=== PATIENT | male | born 1945 | race Caucasian/White ===

== ENCOUNTER 2016-06-29 13:48 | Observation (INO) | payer MEDICARE, BC ==
[~2016-06-29] VITALS: Ht 190.5 cm; Wt 80.5 kg
[~2016-06-29 13:48] MED LIST: ADALAT CC90 MG PO; AFEDITAB CR60 MG PO; ALTOPREV20 MG PO; AMITRIPTYLIN25 MG PO; ASPIRIN LOW DOS81 M2 PO; ATENOLOL25 MG PO; BACTRIM DS1 TAB PO; CARDURA4 MG PO; CATAPRES-T0.2 MG/21 TD; CELEBREX100 M1 PO; CELEXA20 MG PO; CEPHALEXIN500 MG PO; CIPROFLOXACIN500 M1 PO; CIPROFLOXACN500 MG PO; CYCLOBENZAPR10 MG PO; DIAZEPAM5 MG PO; DILAUDID; DOXAZOSIN MESYLA2 MG PO; DOXAZOSIN1 MG PO; DOXYCYCL HYC100 MG PO; DUONEB IN; DURAGESIC75 MCG/H1 TD; ECOTRIN325 MG OR; ELAVIL25 M1 PO; ERYTHROMYCIN BAS1 GM OD; FAMVIR500 MG PO; FENTANYL50 MCG/HR EX; FENTANYL75 MCG/HR TD; FINASTERIDE5 MG PO; FISH OIL1000 MG; FISH OIL1000 MG PO; FLEXERIL PO; FLOMAX0.4 M1 PO; FLUCONAZOLE100 MG PO; GABAPENTIN300 MG PO; HYDROCHLORO25 MG/TAB PO; IPRATROPIU0.5 MG/3 M IN; ISOSORB MONO30 MG PO; ISOSORBIDE DINI30 MG PO; ISOSORBIDE MONO30 MG PO; LASIX20 MG PO; LEVAQUIN750 MG PO; LEVOFLOXACIN250 M1 PO; LEXAPRO10 MG PO; LEXAPRO20 MG PO; LORTAB 1010 MG PO; LORTAB 5/3255 MG PO; LYRICA50 MG PO; MAXZIDE PO; MAXZIDE-25MG1 COMBO PO; MEDDOSEPAK PO; MELOXICAM7.5 MG PO; METAMUCIL28.3 % PO; METHADONE10 M1 PO; METO50TA52 PO; MIRALAX3350 N1 PO; MIRTAZAPINE15 MG PO; NAPROSYN250 MG PO; NAPROSYN500 MG PO; NAPROXEN375 MG PO; NAPROXEN500 MG PO; NEURONTIN100 MG; NEURONTIN100 MG PO; NEURONTIN300 MG PO; NIFEDIPINE ER90 M1 PO; NIFEDIPINE90 MG PO; NITROSTAT0.4 MG PO; NORCO1 TA1 PO; OMEPRAZOLE20 MG PO; OXYCODONE HCL15 MG PO; OXYCODONE15 MG PO; PERCOCET 10/31 COMBO PO; PERCOCET 5/325M1 TAB PO; PERCOCET1 TA4 PO; PRILOSEC20 MG/CAP PO; PROCARDIA XL60 MG PO; PROSCAR5 MG PO; REMERON15 MG PO; RESTORIL15 MG PO; STERAPRED DS10 MG PO; TAMSULOSIN0.4 MG PO; TENORMIN PO; TENORMIN25 MG PO; TYLENOL # 31 TA1 PO; TYLENOL325 MG PO; ULTRAM50 M1 PO; ULTRAM50 MG PO; VALIUM5 MG PO; VENTOLIN HFA IN; [UNRECOGNIZED DRUG - OTHER] PO; catapres PO
[2016-06-29 14:20] VITALS: BP 109/65
[2016-06-29 15:36] LABS: HEMATOCRIT 36.3 % (39.0-50.0); HEMOGLOBIN 10.8 g/dl (14.0-18.0); IMMATURE GRANULOCYTES 0.4 % (0.0-1.0); MEAN CELL VOLUME 80.7 fL CALC (80.0-100.0); MEAN CORPUSCULAR HGB CONC 29.8 g/L CALC (32.0-36.0); NEUT# 5.14 thou/uL (1.82-7.42); RED BLOOD COUNT 4.5 mill/uL (4.70-6.10); RED CELL DISTRI WIDTH 17.3 % (11.5-15.5)
[2016-06-29 16:00] VITALS: BP 120/70
[2016-06-29 16:20] LABS: ALBUMIN 3.8 g/dL (3.2-5.0); BILIRUBIN, TOTAL 0.4 mg/dL (0.0-1.4); CALCIUM 9.4 mg/dL (8.4-10.2); CREATININE 2.5 mg/dL (0.7-1.3); POTASSIUM 3.5 mmol/l (3.5-5.1); TOTAL PROTEIN 7.5 g/dL (6.3-8.2)
[2016-06-29 19:13] VITALS: BP 135/72
[2016-06-29 19:59] LABS: BARBITURATES NEGATIVE (NEGATIVE); COCAINE NEGATIVE (NEGATIVE); METHADONE NEGATIVE (NEGATIVE); OXCYCODONE POSITIVE (NEGATIVE); TETRAHYDROCANNABIONOL NEGATIVE (NEGATIVE); TRICYLIC ANTIDEPRESSANTS POSITIVE (NEGATIVE)
[2016-06-29 21:34] LABS: URINE BILIRUBIN - DIPSTICK NEGATIVE (NEGATIVE); URINE BLOOD DIPSTICK NEGATIVE (NEGATIVE); URINE CLARITY CLEAR; URINE COLOR YELLOW; URINE GLUCOSE - DIPSTICK NEGATIVE (NEGATIVE); URINE KETONE NEGATIVE (NEGATIVE); URINE LEUK ESTERASE NEGATIVE (Negative); URINE NITRITE - DIPSTICK NEGATIVE (Negative); URINE PH 5.5 (4.5-8.0); URINE PROTEIN - DIPSTICK NEGATIVE (NEG-TRACE); URINE UROBILINOGEN - DIPSTICK 0.2 E.U./dL (0.2)
[2016-06-30 00:22] VITALS: BP 120/70
[2016-06-30 03:30] VITALS: BP 127/79
[2016-06-30 06:59] LABS: HEMATOCRIT 36.6 % (39.0-50.0); HEMOGLOBIN 10.8 g/dl (14.0-18.0); IMMATURE GRANULOCYTES 0.1 % (0.0-1.0); MEAN CELL VOLUME 81.3 fL CALC (80.0-100.0); MEAN CORPUSCULAR HGB CONC 29.5 g/L CALC (32.0-36.0); NEUT# 5.21 thou/uL (1.82-7.42); RED BLOOD COUNT 4.5 mill/uL (4.70-6.10); RED CELL DISTRI WIDTH 17.2 % (11.5-15.5)
[2016-06-30 07:35] LABS: ALBUMIN 3.5 g/dL (3.2-5.0); BILIRUBIN, TOTAL 0.4 mg/dL (0.0-1.4); CREATININE 2.1 mg/dL (0.7-1.3); POTASSIUM 3.2 mmol/l (3.5-5.1); TOTAL PROTEIN 7.1 g/dL (6.3-8.2)
[2016-06-30 08:40] VITALS: BP 118/68
[2016-06-30 15:26] VITALS: BP 138/71
[2016-06-30 19:09] VITALS: BP 129/74
[2016-06-30 23:50] VITALS: BP 132/78
[2016-07-01 03:30] VITALS: BP 142/62
[2016-07-01 05:39] LABS: HEMATOCRIT 35.3 % (39.0-50.0); HEMOGLOBIN 10.4 g/dl (14.0-18.0); IMMATURE GRANULOCYTES 0.1 % (0.0-1.0); MEAN CELL VOLUME 81.5 fL CALC (80.0-100.0); MEAN CORPUSCULAR HGB CONC 29.5 g/L CALC (32.0-36.0); NEUT# 3.93 thou/uL (1.82-7.42); RED BLOOD COUNT 4.33 mill/uL (4.70-6.10)
[2016-07-01 06:13] LABS: ALBUMIN 3.6 g/dL (3.2-5.0); BILIRUBIN, TOTAL 0.4 mg/dL (0.0-1.4); CALCIUM 9.3 mg/dL (8.4-10.2); CREATININE 1.6 mg/dL (0.7-1.3); POTASSIUM 3.6 mmol/l (3.5-5.1)
[2016-07-01 08:57] VITALS: BP 138/50
[2016-07-01] MEDS ORDERED: GABAPENTIN300 MG PO (08:59)
[2016-07-01] MEDS ORDERED: FLOMAX0.4 M1 PO (08:59)
[2016-07-01] MEDS ORDERED: VENTOLIN HFA IN (08:59)
[2016-07-01] MEDS ORDERED: LEXAPRO20 MG PO (09:00)
[2016-07-01] MEDS ORDERED: LORAZEPAM0.5 MG PO (09:01)
[2016-07-01] MEDS ORDERED: PRILOSEC20 MG/CAP PO (09:02)
[2016-07-01] MEDS ORDERED: PROSCAR5 MG PO (09:02)
[2016-07-01] MEDS ORDERED: LASIX20 MG PO (09:02)
[2016-07-01] MEDS ORDERED: MIRALAX3350 N1 PO (09:02)
[2016-07-01] MEDS ORDERED: NAPROSYN500 MG PO (09:04)
[2016-07-01] MEDS ORDERED: ISOSORBIDE MONO30 MG PO (09:04)
[2016-07-01] MEDS ORDERED: ATENOLOL25 MG PO (09:04)
== END 2016-07-01 10:12 | disposition home or self-care (01) ==
LOC: ENPENDDIS → MS2 13:48
PROVIDERS: ADMIT Internal Medicine Geriatric Medicine; ATTEND Internal Medicine Geriatric Medicine
DX: E86.0 Dehydration (principal); N17.9 Acute kidney failure, unspecified; R09.02 Hypoxemia; R42 Dizziness and giddiness; R53.1 Weakness; I13.0 Hypertensive heart and chronic kidney disease with heart failure and stage 1 through stage 4 chronic kidney disease, or unspecified chronic kidney disease; N18.9 Chronic kidney disease, unspecified; I50.9 Heart failure, unspecified; I25.10 Atherosclerotic heart disease of native coronary artery without angina pectoris; M19.90 Unspecified osteoarthritis, unspecified site; J44.9 Chronic obstructive pulmonary disease, unspecified; R26.9 Unspecified abnormalities of gait and mobility; D64.9 Anemia, unspecified; F41.8 Other specified anxiety disorders; G89.29 Other chronic pain; F55.8 Abuse of other non-psychoactive substances; Z91.81 History of falling

== ENCOUNTER 2016-07-24 14:42 | Emergency (ER) | payer MEDICARE, BC ==
[~2016-07-24] VITALS: Ht 190.5 cm; Wt 97.3 kg
[~2016-07-24 14:42] MED LIST changes: +LORAZEPAM0.5 MG PO
[2016-07-24] MEDS ORDERED: TYLENOL #4 PO (18:08)
[2016-07-24 18:17] VITALS: BP 199/87
== END 2016-07-24 18:30 | disposition home or self-care (01) ==
LOC: ED 14:42
DX: M25.552 Pain in left hip (principal); M25.551 Pain in right hip; W01.0XXA Fall on same level from slipping, tripping and stumbling without subsequent striking against object, initial encounter; Y92.009 Unspecified place in unspecified non-institutional (private) residence as the place of occurrence of the external cause

== ENCOUNTER 2016-12-01 13:35 | Emergency (ER) | payer MEDICARE, BC ==
[~2016-12-01] VITALS: Ht 190.5 cm; Wt 98.0 kg
[~2016-12-01 13:35] MED LIST changes: +TYLENOL #4 PO
[2016-12-01] MEDS ORDERED: TORADOL PO (14:43)
[2016-12-01] MEDS ORDERED: FLEXERIL PO (14:43)
[2016-12-01] MEDS ORDERED: MOTRIN800 MG PO (14:51)
[2016-12-01 14:57] VITALS: BP 180/92
== END 2016-12-01 15:21 | disposition home or self-care (01) ==
LOC: ED 13:35
DX: G89.29 Other chronic pain (principal); M54.5 Low back pain; K21.9 Gastro-esophageal reflux disease without esophagitis; I11.0 Hypertensive heart disease with heart failure; I50.9 Heart failure, unspecified; F32.9 Major depressive disorder, single episode, unspecified; F41.9 Anxiety disorder, unspecified; F17.210 Nicotine dependence, cigarettes, uncomplicated

== ENCOUNTER 2018-02-07 10:01 | Emergency (ER) | payer MEDICARE, BC ==
[~2018-02-07] VITALS: Ht 190.5 cm; Wt 103.2 kg
[~2018-02-07 10:01] MED LIST changes: +MOTRIN800 MG PO; +TORADOL PO
[2018-02-07 11:14] LABS: HEMATOCRIT 42.6 % (39.0-50.0); HEMOGLOBIN 13.7 g/dl (14.0-18.0); IMMATURE GRANULOCYTES 0.2 % (0.0-5.0); MEAN CELL VOLUME 92.4 fL CALC (80.0-100.0); MEAN CORPUSCULAR HGB 29.7 pG CALC (26.0-32.0); MEAN CORPUSCULAR HGB CONC 32.2 g/L CALC (32.0-36.0); NEUT# 5.98 thou/uL (1.82-7.42); RED BLOOD COUNT 4.61 mill/uL (4.70-6.10); RED CELL DISTRI WIDTH 14.1 % (11.5-15.5)
[2018-02-07 11:18] LABS: ALBUMIN 3.8 g/dL (3.2-5.0); ALKALINE PHOSPHATASE 110 u/l (38-126); ANION GAP 11 (6-22 (CALC)); BILIRUBIN, TOTAL 0.5 mg/dL (0.0-1.4); BUN 19 mg/dL (8-23); BUN/CREATININE RATIO 19 (12-20 (CALC)); CARBON DIOXIDE 29 mmol/l (22-30); CHLORIDE 105 mmol/l (95-108); GFR > 60 ML/MIN (>=60 (CALC)); GFR FOR AFR.AMER. > 60 ML/MIN (>=60 (CALC)); POTASSIUM 4.8 mmol/l (3.5-5.1); SGOT/AST 19 u/l (19-48); SODIUM 140 mmol/l (137-146); TOTAL PROTEIN 7.3 g/dL (6.3-8.2)
[2018-02-07 11:59] VITALS: BP 204/116
[2018-02-07] MEDS ORDERED: PROVENTIL HFA IN (13:04)
[2018-02-07] MEDS ORDERED: ZITHROMAX250 MG PO (13:04)
[2018-02-07] MEDS ORDERED: LASIX20 MG PO (13:04)
[2018-02-07] MEDS ORDERED: MEDDOSEPAK PO (13:04)
[2018-02-07] MEDS ORDERED: ALBUTEROL SUL0.083 % IN (13:26)
== END 2018-02-07 13:53 | disposition home or self-care (01) ==
LOC: ED 10:01
PROVIDERS: Emergency Medicine
DX: J44.1 Chronic obstructive pulmonary disease with (acute) exacerbation (principal); I50.9 Heart failure, unspecified; I10 Essential (primary) hypertension; F17.200 Nicotine dependence, unspecified, uncomplicated; R06.02 Shortness of breath; R05 Cough; Z91.19 Patient's noncompliance with other medical treatment and regimen
CPT/HCPCS: Q9967

== ENCOUNTER 2018-03-29 00:07 | Emergency (ER) | payer MEDICARE, BC ==
[~2018-03-29] VITALS: Ht 188 cm; Wt 103.2 kg
[~2018-03-29 00:07] MED LIST changes: +ALBUTEROL SUL0.083 % IN; +PROVENTIL HFA IN; +ZITHROMAX250 MG PO
[2018-03-29] MEDS ORDERED: ELIQUIS5 MG PO (00:55)
[2018-03-29 00:59] LABS: HEMATOCRIT 40.9 % (39.0-50.0); HEMOGLOBIN 13.1 g/dl (14.0-18.0); IMMATURE GRANULOCYTES 0.2 % (0.0-5.0); MEAN CELL VOLUME 90.3 fL CALC (80.0-100.0); MEAN CORPUSCULAR HGB 28.9 pG CALC (26.0-32.0); NEUT# 6.68 thou/uL (1.82-7.42); RED BLOOD COUNT 4.53 mill/uL (4.70-6.10); RED CELL DISTRI WIDTH 14.1 % (11.5-15.5)
[2018-03-29 01:00] LABS: URINE BILIRUBIN - DIPSTICK NEGATIVE (NEGATIVE); URINE BLOOD DIPSTICK NEGATIVE (NEGATIVE); URINE COLOR YELLOW; URINE GLUCOSE - DIPSTICK NEGATIVE (NEGATIVE); URINE KETONE NEGATIVE (NEGATIVE); URINE LEUK ESTERASE NEGATIVE (NEGATIVE); URINE NITRITE - DIPSTICK NEGATIVE (Negative); URINE PH 7.5 (4.5-8.0); URINE PROTEIN - DIPSTICK NEGATIVE (NEG-TRACE); URINE UROBILINOGEN - DIPSTICK 0.2 E.U./dL (0.2)
[2018-03-29 01:07] LABS: ALBUMIN 3.7 g/dL (3.2-5.0); ALKALINE PHOSPHATASE 96 u/l (38-126); ANION GAP 11 (6-22 (CALC)); BILIRUBIN, TOTAL 0.4 mg/dL (0.0-1.4); BUN 20 mg/dL (8-23); BUN/CREATININE RATIO 18 (12-20 (CALC)); CARBON DIOXIDE 28 mmol/l (22-30); CHLORIDE 106 mmol/l (95-108); CREATININE 1.2 mg/dL (0.7-1.3); GFR 59 ML/MIN (>=60 (CALC)); GFR FOR AFR.AMER. > 60 ML/MIN (>=60 (CALC)); SGOT/AST 20 u/l (19-48); SODIUM 142 mmol/l (137-146); TOTAL PROTEIN 7.1 g/dL (6.3-8.2)
[2018-03-29 01:14] LABS: ACT PARTIAL THROMBO TIME 28.5 SECONDS (20.0-32.5); D-DIMER 0.97 mg/L (0.19-0.60); PROTHROMBIN TIME 10.2 SECONDS (9.0-12.5)
[2018-03-29 01:19] LABS: MYOGLOBIN 88 ng/mL (0 - 121)
[2018-03-29 01:35] VITALS: BP 168/81
== END 2018-03-29 01:35 | disposition home or self-care (01) ==
LOC: ED 00:07
PROVIDERS: Family Medicine
DX: R07.89 Other chest pain (principal); I10 Essential (primary) hypertension; J44.9 Chronic obstructive pulmonary disease, unspecified; F17.210 Nicotine dependence, cigarettes, uncomplicated

== ENCOUNTER 2018-08-26 05:15 | Observation (INO) | payer MEDICARE, BC ==
[~2018-08-26] VITALS: Ht 188 cm; Wt 101.1 kg
[~2018-08-26 05:15] MED LIST changes: +ELIQUIS5 MG PO
[2018-08-26] MEDS ORDERED: OMEPRAZOLE10 MG PO (05:29)
[2018-08-26] MEDS ORDERED: NAPROSYN500 MG PO (05:30)
[2018-08-26] MEDS ORDERED: OXYCOD-APAP1 TAB PO (05:31)
[2018-08-26] MEDS ORDERED: HYDROCHLOROT25 MG PO (05:31)
[2018-08-26] MEDS ORDERED: LEXAPRO10 MG PO (05:32)
[2018-08-26] MEDS ORDERED: KLOR-CON 1010 MEQ PO (05:35)
[2018-08-26] MEDS ORDERED: XALATAN 0.005%2.5 ML (05:36)
[2018-08-26] MEDS ORDERED: ATORVASTATIN CA40 MG PO (05:37)
[2018-08-26] MEDS ORDERED: ASPIRINCHW 81MG PO (05:38)
[2018-08-26] MEDS ORDERED: ALDACTONE25 MG PO (05:38)
[2018-08-26] MEDS ORDERED: METOLAZONE2.5 MG PO (05:39)
[2018-08-26] MEDS ORDERED: ISOSORB MONO30 MG PO (05:39)
[2018-08-26] MEDS ORDERED: MICRO-K10 MEQ PO (05:40)
[2018-08-26] MEDS ORDERED: METOPROLOL SUCC25 MG PO (05:40)
[2018-08-26] MEDS ORDERED: GABAPENTIN300 M2 PO (05:41)
[2018-08-26] MEDS ORDERED: ELAVIL25 M1 PO (05:42)
[2018-08-26] MEDS ORDERED: LOSARTAN POT50 MG PO (05:42)
[2018-08-26 05:43] LABS: HEMATOCRIT 37.7 % (39.0-50.0); HEMOGLOBIN 12.1 g/dl (14.0-18.0); IMMATURE GRANULOCYTES 0.6 % (0.0-5.0); MEAN CORPUSCULAR HGB 28.9 pG CALC (26.0-32.0); MEAN CORPUSCULAR HGB CONC 32.1 g/L CALC (32.0-36.0); NEUT# 9.27 thou/uL (1.82-7.42); RED BLOOD COUNT 4.19 mill/uL (4.70-6.10); RED CELL DISTRI WIDTH 14.6 % (11.5-15.5)
[2018-08-26] MEDS ORDERED: FINASTERIDE5 MG PO (05:43)
[2018-08-26] MEDS ORDERED: CATAPRES-T0.2 MG/21 TD (05:43)
[2018-08-26 05:56] LABS: ALKALINE PHOSPHATASE 103 u/l (38-126); ANION GAP 16 (6-22 (CALC)); BILIRUBIN, TOTAL 0.8 mg/dL (0.0-1.4); BUN 18 mg/dL (8-23); BUN/CREATININE RATIO 15 (12-20 (CALC)); CARBON DIOXIDE 27 mmol/l (22-30); CHLORIDE 100 mmol/l (95-108); CREATININE 1.2 mg/dL (0.7-1.3); GFR 59 ML/MIN (>=60 (CALC)); GFR FOR AFR.AMER. > 60 ML/MIN (>=60 (CALC)); POTASSIUM 4.3 mmol/l (3.5-5.1); SGOT/AST 23 u/l (19-48); SODIUM 139 mmol/l (137-146); TOTAL PROTEIN 7.4 g/dL (6.3-8.2)
[2018-08-26 06:08] LABS: MYOGLOBIN 76 ng/mL (0 - 121)
[2018-08-26] MEDS ORDERED: LASIX 40 MG TAB40 MG PO (06:14)
[2018-08-26 07:03] LABS: URINE BILIRUBIN - DIPSTICK NEGATIVE (NEGATIVE); URINE BLOOD DIPSTICK NEGATIVE (NEGATIVE); URINE COLOR YELLOW; URINE GLUCOSE - DIPSTICK NEGATIVE (NEGATIVE); URINE KETONE NEGATIVE (NEGATIVE); URINE LEUK ESTERASE NEGATIVE (NEGATIVE); URINE NITRITE - DIPSTICK NEGATIVE (Negative); URINE PH 6.5 (4.5-8.0); URINE PROTEIN - DIPSTICK NEGATIVE (NEG-TRACE); URINE SPECIFIC GRAVITY <=1.005; URINE UROBILINOGEN - DIPSTICK 0.2 E.U./dL (0.2)
[2018-08-26 08:45] VITALS: BP 161/114
[2018-08-26 11:06] VITALS: BP 184/107
[2018-08-26 15:54] VITALS: BP 101/69
[2018-08-26 19:50] VITALS: BP 104/71
[2018-08-27 00:08] VITALS: BP 147/73
[2018-08-27 05:09] VITALS: BP 105/56
[2018-08-27 05:32] LABS: HEMATOCRIT 38.5 % (39.0-50.0); HEMOGLOBIN 12.1 g/dl (14.0-18.0); IMMATURE GRANULOCYTES 0.7 % (0.0-5.0); MEAN CELL VOLUME 91.7 fL CALC (80.0-100.0); MEAN CORPUSCULAR HGB 28.8 pG CALC (26.0-32.0); MEAN CORPUSCULAR HGB CONC 31.4 g/L CALC (32.0-36.0); NEUT# 12.03 thou/uL (1.82-7.42); RED BLOOD COUNT 4.2 mill/uL (4.70-6.10); RED CELL DISTRI WIDTH 14.8 % (11.5-15.5)
[2018-08-27 05:53] LABS: ALBUMIN 3.9 g/dL (3.2-5.0); ALKALINE PHOSPHATASE 87 u/l (38-126); BUN 33 mg/dL (8-23); BUN/CREATININE RATIO 25 (12-20 (CALC)); CARBON DIOXIDE 29 mmol/l (22-30); CHLORIDE 97 mmol/l (95-108); CREATININE 1.3 mg/dL (0.7-1.3); GFR 54 ML/MIN (>=60 (CALC)); GFR FOR AFR.AMER. > 60 ML/MIN (>=60 (CALC)); SGOT/AST 16 u/l (19-48); SODIUM 139 mmol/l (137-146)
[2018-08-27 06:00] LABS: ANION GAP 18 (6-22 (CALC)); BILIRUBIN, TOTAL 0.4 mg/dL (0.0-1.4); POTASSIUM 5.2 mmol/l (3.5-5.1)
[2018-08-27 08:50] VITALS: BP 126/70
[2018-08-27 11:15] VITALS: BP 141/80
[2018-08-27 15:45] VITALS: BP 113/61
[2018-08-27 19:30] VITALS: BP 121/78
[2018-08-28] VITALS: BP 127/70
[2018-08-28 04:04] VITALS: BP 135/75
[2018-08-28 05:38] LABS: ALBUMIN 3.5 g/dL (3.2-5.0); ALKALINE PHOSPHATASE 86 u/l (38-126); ANION GAP 14 (6-22 (CALC)); BUN 36 mg/dL (8-23); BUN/CREATININE RATIO 32 (12-20 (CALC)); CARBON DIOXIDE 30 mmol/l (22-30); CHLORIDE 101 mmol/l (95-108); CREATININE 1.1 mg/dL (0.7-1.3); GFR > 60 ML/MIN (>=60 (CALC)); GFR FOR AFR.AMER. > 60 ML/MIN (>=60 (CALC)); POTASSIUM 4.5 mmol/l (3.5-5.1); SGOT/AST 13 u/l (19-48); SODIUM 139 mmol/l (137-146); TOTAL PROTEIN 6.3 g/dL (6.3-8.2)
[2018-08-28 05:48] LABS: BILIRUBIN, TOTAL 0.2 mg/dL (0.0-1.4)
[2018-08-28 08:37] VITALS: BP 149/79
[2018-08-28 08:41] VITALS: BP 149/79
== END 2018-08-28 10:15 | disposition home or self-care (01) ==
LOC: ED 05:15 → ED-I 07:30 → ED 07:52 → MS2 07:53
PROVIDERS: Emergency Medicine; ADMIT Internal Medicine Geriatric Medicine; ATTEND Internal Medicine Geriatric Medicine
DX: I13.0 Hypertensive heart and chronic kidney disease with heart failure and stage 1 through stage 4 chronic kidney disease, or unspecified chronic kidney disease (principal); I50.9 Heart failure, unspecified; N18.9 Chronic kidney disease, unspecified; E86.0 Dehydration; J44.9 Chronic obstructive pulmonary disease, unspecified; I42.9 Cardiomyopathy, unspecified; I25.10 Atherosclerotic heart disease of native coronary artery without angina pectoris; E78.5 Hyperlipidemia, unspecified; D64.9 Anemia, unspecified; I73.9 Peripheral vascular disease, unspecified; F19.20 Other psychoactive substance dependence, uncomplicated; F41.1 Generalized anxiety disorder; F32.9 Major depressive disorder, single episode, unspecified; G89.29 Other chronic pain; R26.89 Other abnormalities of gait and mobility; Z87.891 Personal history of nicotine dependence; Z91.81 History of falling; R06.02 Shortness of breath; R07.9 Chest pain, unspecified

== ENCOUNTER 2018-09-07 06:09 | Emergency (ER) | payer MEDICARE, BC ==
[~2018-09-07] VITALS: Ht 188 cm; Wt 94.0 kg
[~2018-09-07 06:09] MED LIST changes: +ALDACTONE25 MG PO; +ASPIRINCHW 81MG PO; +ATORVASTATIN CA40 MG PO; +GABAPENTIN300 M2 PO; +HYDROCHLOROT25 MG PO; +KLOR-CON 1010 MEQ PO; +LASIX 40 MG TAB40 MG PO; +LOSARTAN POT50 MG PO; +METOLAZONE2.5 MG PO; +METOPROLOL SUCC25 MG PO; +MICRO-K10 MEQ PO; +OMEPRAZOLE10 MG PO; +OXYCOD-APAP1 TAB PO; +XALATAN 0.005%2.5 ML
[2018-09-07] MEDS ORDERED: MOTRIN400 MG PO (06:32)
[2018-09-07 06:41] VITALS: BP 180/100
== END 2018-09-07 07:35 | disposition home or self-care (01) ==
LOC: ED 06:09
DX: Z76.0 Encounter for issue of repeat prescription (principal); G89.29 Other chronic pain; M54.5 Low back pain; I10 Essential (primary) hypertension; J44.9 Chronic obstructive pulmonary disease, unspecified; I25.10 Atherosclerotic heart disease of native coronary artery without angina pectoris; I42.9 Cardiomyopathy, unspecified; I70.1 Atherosclerosis of renal artery

== ENCOUNTER 2018-12-23 15:09 | Emergency (ER) | payer MEDICARE, BC ==
[~2018-12-23] VITALS: Ht 188 cm; Wt 120.0 kg
[~2018-12-23 15:09] MED LIST changes: +MOTRIN400 MG PO
[2018-12-23] MEDS ORDERED: VITAMIN C500 M6 PO (15:59)
[2018-12-23] MEDS ORDERED: HYDRALAZINE10 MG PO (16:00)
[2018-12-23] MEDS ORDERED: CLOPIDOGREL75 MG PO (16:00)
[2018-12-23] MEDS ORDERED: CARVEDILOL25 MG PO (16:01)
[2018-12-23] MEDS ORDERED: FUROSEMIDE20 MG PO (16:01)
[2018-12-23] MEDS ORDERED: METOPROL TAR25 MG PO (16:02)
[2018-12-23 16:04] LABS: URINE BILIRUBIN - DIPSTICK NEGATIVE (NEGATIVE); URINE BLOOD DIPSTICK NEGATIVE (NEGATIVE); URINE COLOR YELLOW; URINE GLUCOSE - DIPSTICK NEGATIVE (NEGATIVE); URINE KETONE NEGATIVE (NEGATIVE); URINE LEUK ESTERASE NEGATIVE (NEGATIVE); URINE NITRITE - DIPSTICK NEGATIVE (Negative); URINE PROTEIN - DIPSTICK NEGATIVE (NEG-TRACE); URINE SPECIFIC GRAVITY 1.015; URINE UROBILINOGEN - DIPSTICK 0.2 E.U./dL (0.2)
[2018-12-23 16:10] LABS: HEMATOCRIT 39.8 % (39.0-50.0); IMMATURE GRANULOCYTES 0.3 % (0.0-5.0); MEAN CELL VOLUME 88.1 fL CALC (80.0-100.0); MEAN CORPUSCULAR HGB 28.8 pG CALC (26.0-32.0); MEAN CORPUSCULAR HGB CONC 32.7 g/L CALC (32.0-36.0); RED BLOOD COUNT 4.52 mill/uL (4.70-6.10); RED CELL DISTRI WIDTH 14.2 % (11.5-15.5)
[2018-12-23 16:19] LABS: ANION GAP 13 (6-22 (CALC)); BUN 14 mg/dL (8-23); BUN/CREATININE RATIO 14 (12-20 (CALC)); CARBON DIOXIDE 29 mmol/l (22-30); CHLORIDE 101 mmol/l (95-108); GFR > 60 ML/MIN (>=60 (CALC)); GFR FOR AFR.AMER. > 60 ML/MIN (>=60 (CALC)); POTASSIUM 4.5 mmol/l (3.5-5.1); SODIUM 139 mmol/l (137-146)
[2018-12-23 16:20] LABS: BILIRUBIN, TOTAL 0.7 mg/dL (0.0-1.4); TOTAL PROTEIN 7.5 g/dL (6.3-8.2)
[2018-12-23 17:22] VITALS: BP 151/73
== END 2018-12-23 17:32 | disposition home or self-care (01) ==
LOC: ED 15:09
PROVIDERS: Family Medicine
PROC: 0T9B70Z Drainage of Bladder with Drainage Device, Via Natural or Artificial Opening (ICD-10-PCS; principal; 2018-12-23)
DX: R33.9 Retention of urine, unspecified (principal); I10 Essential (primary) hypertension; J44.9 Chronic obstructive pulmonary disease, unspecified; I25.10 Atherosclerotic heart disease of native coronary artery without angina pectoris; I42.9 Cardiomyopathy, unspecified

== ENCOUNTER 2019-03-21 | Emergency (ER) | payer MEDICARE, BC ==
[~2019-03-21] MED LIST changes: +CARVEDILOL25 MG PO; +CLOPIDOGREL75 MG PO; +FUROSEMIDE20 MG PO; +HYDRALAZINE10 MG PO; +METOPROL TAR25 MG PO; +VITAMIN C500 M6 PO
[2019-03-21 13:22] LABS: HEMATOCRIT 48.2 % (39.0-50.0); HEMOGLOBIN 14.8 g/dl (14.0-18.0); IMMATURE GRANULOCYTES 0.3 % (0.0-5.0); MEAN CELL VOLUME 92.5 fL CALC (80.0-100.0); MEAN CORPUSCULAR HGB 28.4 pG CALC (26.0-32.0); MEAN CORPUSCULAR HGB CONC 30.7 g/L CALC (32.0-36.0); NEUT# 7.26 thou/uL (1.82-7.42); RED BLOOD COUNT 5.21 mill/uL (4.70-6.10); RED CELL DISTRI WIDTH 14.1 % (11.5-15.5)
[2019-03-21 13:27] LABS: ALBUMIN 3.9 g/dL (3.2-5.0); ALKALINE PHOSPHATASE 101 u/l (38-126); ANION GAP 12 (6-22 (CALC)); BILIRUBIN, TOTAL 0.7 mg/dL (0.0-1.4); BUN 19 mg/dL (8-23); BUN/CREATININE RATIO 24 (12-20 (CALC)); CARBON DIOXIDE 26 mmol/l (22-30); CHLORIDE 102 mmol/l (95-108); CREATININE 0.8 mg/dL (0.7-1.3); GFR > 60 ML/MIN (>=60 (CALC)); GFR FOR AFR.AMER. > 60 ML/MIN (>=60 (CALC)); POTASSIUM 4.6 mmol/l (3.5-5.1); SGOT/AST 25 u/l (19-48); SODIUM 135 mmol/l (137-146); TOTAL PROTEIN 7.5 g/dL (6.3-8.2)
[2019-03-21 14:21] LABS: URINE BILIRUBIN - DIPSTICK NEGATIVE (NEGATIVE); URINE BLOOD DIPSTICK NEGATIVE (NEGATIVE); URINE COLOR YELLOW; URINE GLUCOSE - DIPSTICK NEGATIVE (NEGATIVE); URINE KETONE NEGATIVE (NEGATIVE); URINE LEUK ESTERASE NEGATIVE (NEGATIVE); URINE NITRITE - DIPSTICK NEGATIVE (Negative); URINE PH 7.5 (4.5-8.0); URINE PROTEIN - DIPSTICK NEGATIVE (NEG-TRACE); URINE UROBILINOGEN - DIPSTICK 0.2 E.U./dL (0.2)
[2019-03-21] MEDS ORDERED: FLEXERIL PO (15:19)
[2019-03-21] MEDS ORDERED: MEDDOSEPAK PO ×2 (15:19)
[2019-12-22] MEDS ORDERED: CYMBALTA30 MG PO (16:30)
[2019-12-22] MEDS ORDERED: FULL SPECTRUM S1 CAP PO (16:31)
== END 2019-03-21 16:30 | disposition home or self-care (01) ==
DX: M54.5 Low back pain (principal); I10 Essential (primary) hypertension; J44.9 Chronic obstructive pulmonary disease, unspecified; I25.10 Atherosclerotic heart disease of native coronary artery without angina pectoris; F17.210 Nicotine dependence, cigarettes, uncomplicated; Z79.891 Long term (current) use of opiate analgesic

== ENCOUNTER 2019-10-06 07:37 | Inpatient (IN) | payer MEDICARE, BC ==
[~2019-10-06] VITALS: Ht 188 cm; Wt 102.0 kg
--- NOTE | 2019-10-06 07:37 | NUR ---
PT TO [facility] VIA EMS FOR BEDSIDE TRIAGE
--- NOTE | 2019-10-06 07:43 | NUR ---
PT STATES A PAIN OF 10/10 THAT HAS BEEN OCCURING FOR THE LAST THREE MONTHS AND HAS PROGRESSIVELY BEEN INCREASING. PT DENIES DOING ANY EXTRENUOUS ACTIVITY THAT MAY HAVE AGGRIVATED PAIN. +PMS IN ALL EXTREM. AOX4. PERRLA. DENIES CERVICAL. PT STATES HAVING GENERALIZED BACK PAIN. MD AT BEDSIDE DOING EXAMINATION. PT PLACED IN POSITION OF COMFORT. BP ELEVATED AT 202 SYSTOLIC. CALL LIGHT WITHIN REACH. WILL CONTINUE TO MONTIOR.
[2019-10-06] MEDS ORDERED: ALDACTONE25 MG PO (08:10)
[2019-10-06] MEDS ORDERED: ALBUTEROL108 MCG/AC PO (08:11)
[2019-10-06] MEDS ORDERED: ENTRESTO 24-261 TAB (08:12)
[2019-10-06] MEDS ORDERED: NORVASC5 M1 PO (08:13)
[2019-10-06] MEDS ORDERED: FISH OIL1000 MG PO (08:14)
[2019-10-06] MEDS ORDERED: ALLERGY RE50 MCG/ACT (08:14)
[2019-10-06] MEDS ORDERED: HYDROMORPHONE (08:16)
[2019-10-06] MEDS ORDERED: OXYCODONE15 MG PO (08:18)
[2019-10-06 08:25] LABS: HEMOGLOBIN 16.3 g/dl (14.0-18.0); IMMATURE GRANULOCYTES 0.2 % (0.0-5.0); MEAN CELL VOLUME 92.9 fL CALC (80.0-100.0); MEAN CORPUSCULAR HGB 29.1 pG CALC (26.0-32.0); MEAN CORPUSCULAR HGB CONC 31.3 g/dL CAL (32.0-36.0); NEUT# 7.14 thou/uL (1.82-7.42); RED BLOOD COUNT 5.6 mill/uL (4.70-6.10); RED CELL DISTRI WIDTH 13.2 % (11.5-15.5)
--- NOTE | 2019-10-06 08:40 | NUR ---
PT STATES BEING IN CONTINUED PAIN AND THAT THE TORADOL GIVIN EARLIER "DID NOT TOUCH ANYTHING". MD NOTIFIED AND MEDICATION WILL BE ADMIN. CALL LIGHT WITHIN REACH
[2019-10-06 08:44] LABS: ALBUMIN 4.9 g/dL (3.2-5.0); ALKALINE PHOSPHATASE 123 u/l (38-126); ANION GAP 12 (6-22 (CALC)); BILIRUBIN, TOTAL 0.6 mg/dL (0.0-1.4); BUN 23 mg/dL (8-23); BUN/CREATININE RATIO 21 (12-20 (CALC)); CARBON DIOXIDE 28 mmol/l (22-30); CHLORIDE 100 mmol/l (95-108); CREATININE 1.1 mg/dL (0.7-1.3); GFR > 60 ML/MIN (>=60 (CALC)); GFR FOR AFR.AMER. > 60 ML/MIN (>=60 (CALC)); POTASSIUM 4.5 mmol/l (3.5-5.1); SGOT/AST 35 u/l (19-48); SODIUM 134 mmol/l (137-146); TOTAL PROTEIN 8.6 g/dL (6.3-8.2)
--- NOTE | 2019-10-06 09:02 | NUR ---
SPO2 HAD DECREASED TO 81-85% AFTER PAIN MEDICATION. O2 AT 2L INITIATED. CURRENT SPO2 94%
--- NOTE | 2019-10-06 10:30 | NUR ---
O2 REMOVED PER MD ORDER. PT SATS AT 91% RA AND IS IN NO DISTRESS
[2019-10-06 11:21] LABS: URINE BILIRUBIN - DIPSTICK NEGATIVE (NEGATIVE); URINE BLOOD DIPSTICK NEGATIVE (NEGATIVE); URINE COLOR YELLOW; URINE GLUCOSE - DIPSTICK >=1000 mg/dL (NEGATIVE); URINE KETONE NEGATIVE (NEGATIVE); URINE LEUK ESTERASE NEGATIVE (NEGATIVE); URINE NITRITE - DIPSTICK NEGATIVE (Negative); URINE PROTEIN - DIPSTICK TRACE mg/dL (NEG-TRACE); URINE UROBILINOGEN - DIPSTICK 0.2 E.U./dL (0.2)
--- NOTE | 2019-10-06 11:46 | NUR ---
PT REQUEST TO BE PLACED IN BEDSIDE CHAIR BECAUSE HIS BACK IS HURTING. REQUEST GRANTED. CALL LIGHT WITHIN REACH
--- NOTE | 2019-10-06 12:30 | NUR ---
O2 PLACED BACK ON PT SPO2 STARTED TO DECREASE. PT WAS ASLEEP IN CHAIR. CALL LIGHT WITHIN REACH
--- NOTE | 2019-10-06 12:48 | NUR ---
ATTEMPTED TO CALL FOR REPORT TO MED SURG, IT IS MENTIONED THAT NURSE IS BUSY AND WILL CALL BACK
--- NOTE | 2019-10-06 13:37 | NUR ---
GAVE REPORT TO VALERI
--- NOTE | 2019-10-06 13:45 | NUR ---
PT TRANSPORTED TO [facility] SURG STABLE AND IN NO DISTRESS. CARE ASSUMED TO VALERI Admission Note Report Given to: Transported by: X Wheelchair Stretcher Transported with: X Nurse Transporter X Patent IV X O2 X Regulatory Affairs Strategy Specialist Location: ICU X MS2
[2019-10-06 14:00] VITALS: BP 148/72
--- NOTE | 2019-10-06 14:48 | NUR ---
PT ADMITTED TO UNIT VIA STETCHER. RESIDENT IS ABLE TO VERBALIZE NEEDS. RESPIRATION EVEN AND NON LABORED. WHEEZING NOTED IN LUNG BARCLAY. PT STATES THAT HAS PRODUCTIVE COUGH COUGHING UP WILSON COLORED THICK SPUTUM PER PT. PT LOWER EXTREMITIES ARE COLD AND DRY TO TOUCH AND SKIN APPEARS MOTTLED. BILATERAL PEDAL PULSES STRONG. O2 SAT 94% ROOM AIR AND STATES THAT HE SOB ON EXERTION. COMPLAINED OF NASAL CONGESTION. COMPLAINED OF PAIN IN BACK IN WHICH HE STATES HE ALWAYS HAS PAIN. TEARFUL STATING THAT HIS FAMILY IS NO HELP TO HIM WHEN HE NEEDS IT. NETWORK TECHNICIAN MADE AWARE. PT STATES THAT HE USES A WHELLCHAIR AT HOME AND HAS WALKERS THAT HE DOES NOT USE. ENDENTULOUS BUT DENIES ANY DISTRESS OR COMPLICATIONS WITH SWALLOWING/CHEWING. IN BED WITH EYES CLOSED. CALL LIGHT WITHIN REACH. BED IN LOWEST POSITION. WILL CONTINUE TO OBSERVE.
[2019-10-06 17:54] VITALS: BP 129/79
--- NOTE | 2019-10-06 18:13 | NUR ---
PT HAS HYPOACTIVE BOWEL SOUNDS. MILK OF MAGNESIA GIVEN. MEDICATED FOR PAIN AND PT STATES THAT IT WILL NOT BE EFFECTIVE. NOOTIFIED AND AWAITING ORDERS.
--- NOTE | 2019-10-06 18:34 | NUR ---
DAUGHTER CALLED AND INFORMED FROM HER MOTHER THE "ENTRESTO " WILL NOT BE READY FOR MATTE CUTTER UNTIL TOMORROW AT THEIR PHARMACY.
[2019-10-06 19:43] VITALS: BP 138/69
--- NOTE | 2019-10-06 21:25 | NUR ---
PHYSICIAN TUNGSTEN TENDER NOTIFIED THAT PT WAS UNABLE TO TAKE HIS ENTRESTO DUE TO MEDICATION BEING AT HOME. REPORTED TO HIM THAT "MAY" BRING IT IN THE MORNING. BP/HR REPORTED ALSO, NO NEW ORDERS RECEIVED AT THIS TIME. ACCORDING TO DAY NURSE IS SUPPOSED TO BRING IT IN THE MORNING TOMORROW. PT REPORTS THAT "SHE PROBABLY WON'T BECAUSE SHE IS A (EXPLITIVE). PT REPORTS THAT PT LIVES WITH AND DAUGHTER AND THAT "THEY DON'T TAKE CARE OF ME WHEN I GET SICK. THEY SAY IT'S ALL IN MY HEAD." PT REPORTING PAIN IN LOWER RIGHT BACK/SIDE AREA, "THINK IT COULD BE MY KIDNEY."
--- NOTE | 2019-10-06 22:45 | NUR ---
PT CALLED TO ASK IF HE CAN WALK HIMSELF AROUND HALLWAY IN WHEELCHAIR. POURER BULL LADLE ASSISTED PT TO CHAIR AND PLACED MASK ON PT. HE IS AMBULATING HALLWAY VIA WHEELCHAIR AT THIS TIME.
[2019-10-06 23:00] VITALS: BP 126/75
[2019-10-07 03:45] VITALS: BP 145/73
[2019-10-07 07:37] VITALS: BP 173/93
--- NOTE | 2019-10-07 07:38 | NUR ---
RECEIEVED REPORT FROM LISA MILLER. PT RESTING IN LOW FOWLERS POSITION UPON ENTERING ROOM . INTRODUCED SELF TO PT AND DISCUSSED POC. PT IS A/OX3 WITH WHEELCHAIR AT BEDSIDE. ASSESSMENT AND VITALS COMPLETED AT THIS TIME. BP 173/93, HR 68, 02 94% ON ROOM AIR. RESPIRATIONS ARE EVEN AND UNLABORED WITH NO SIGNS OF DISTRESS. LUNG SOUNDS ARE RONCHI, PT DENIES ANY SOB. HEART RHYTHMIS NORMAL WITH TELE IN PLACE. BOWEL SOUNDS ARE ACTIVE IN ALL QUADRANTS WITH NO TENDERENESS. LAST REPORTED BM 10/06/19. RADIAL AND PEDAL PULSES ARE STRONG WITH NORMAL CAPILLARY REFILL. IV FLUSHED, SITE APPEARS HEALTHY AND PATENT. SKIN IS COOL AND DRY, APPEARS TO BE BRUISES WITH NO EDEMA. PT COMPLAINS OF A 10/10 RIGHT BACK PAIN, DILAUDID TO BE GIVEN WITH MORNING MEDS. REMINDED PT OF HOME MED THAT NEEDED TO BE BROUGHT IN . PT STATED "ITS NOT GOING TO HAPPEN". PT DENIES OF ANY OTHER PAIN OR DISCOMFORTS AT THIS TIME. ALL SAFETY PRECAUTIONS REMAIN IN PLACE WITH CALL LIGTH IN REACH.WILL CONTINUE TO MONITOR.
--- NOTE | 2019-10-07 08:32 | NUR ---
SPOKE WITH DAUGHTER OF PT, DAUGHTER STATED THAT SHE WILL BE BRINGING PT HOME MEDICATION LATER ON IN THE AFTERNOON.
--- NOTE | 2019-10-07 10:00 | NUR ---
REASSESSMENT OF DILAUDID AT THIS ITME. PT RATES PAIN TO STILL BE A 10/10. ROXICODONE ADMINISTERED AT THIS TIME. RESPIRATIONS ARE EVEN AND UNLABORED WITH NO SIGNS OF DISTRESS. PT DENIES ANY OTHER PAINS OR ADDITIONAL NEEDS AT THIS TIME. ALL SAFTEY PRECAUTIONS IN PLACE WITH CALL LIGHT IN REACH. WILL CONTINUE TO MONITOR
--- NOTE | 2019-10-07 11:05 | NUR ---
REASSESSMENT OF PAIN AT THIS TIME. PAIN RESULTING IN 10/10 STILL. PT TELLS WRITTER THAT HE WANTS TO SPEAK TO A JODI VINESRP TO BE NOTIFIED. RESPIRATIONS ARE EVEN AND UNLABORED WITH NO SIGNS OF DISTRESS. PT DENIES ANY OTHER PAINS OR DISCOMFORTS AT THIS TIME. ALL SAFTEY PRECAUTIONS IN PLACE WITH CALL LIGHT IN REACH. WILL COTNINUE TO MONITOR
--- NOTE | 2019-10-07 11:21 | NUR ---
HOME MED ENTRESTO BROUGHT FROM PT FAMILY. HOME MEDICATIONS SENT TO PHARACY
[2019-10-07 11:44] VITALS: BP 155/83
[2019-10-07] MEDS ORDERED: MAGNESIUM296 ML/BTL PO (11:59)
--- NOTE | 2019-10-07 12:47 | NUR ---
PT STILL COMPAINS OF 10/10 BACK PAIN. NTOIFIED. DILAUDID ADMINISTERED TO ASSIST WITH PAIN.PT COMPLAINS OF CONSTIPATION,MAGNESIUM CITRATE ADMINISTERED TO ASSIST WITH BM. RESPIRATIONS ARE EVEN AND UNLABORED WITH NO SIGNS OF DISTRESS. ALL SAFTEY PRECAUTIONS REMAIN IN PLACE WITH CALL LIGHT IN REACH. WILL CONTINUE TO MONITOR
--- NOTE | 2019-10-07 13:36 | NUR ---
REASSSESSMENT OF PAIN AT THIS TIME. PT STATES PAIN IS STILL 10/10. REPOSITIONED PT WITH 2 PILLOWS. RESPIRATIONS ARE EVEN AND UNLABORED WITH NO SIGNS OF DISTRESS. PT DENIES ANY OTHER PAINS OR DISCOMFORTS AT THIS TIME. ALL SAFTEY PRECAUTIONS IN PLACE WITH CALL LIGHT IN REACH. WILL CONTINUE TO MONITOR
[2019-10-07 16:15] VITALS: BP 159/98
--- NOTE | 2019-10-07 16:30 | NUR ---
PT SLEEPING IN LOW FOWLERS POSITION. RESPIRATIONS ARE EVEN AND UNLABORED WITH NO SIGNS OF DISTRESS. NO SIGNS OF ANY PAIN OR DISCOMFORTS AT THIS TIME. ALL SAFTEY AND ISOLATION PRECAUTIONS REMAIN IN PLACE. WILL CONTINUE TO MONITOR
--- NOTE | 2019-10-07 17:28 | NUR ---
PT COMPLAINS OF 10/10 BACK PAIN AT THIS TIME. ROXICODONE ADMINISTERED.RESPIRATIONS ARE EVEN AND UNLABORED WITH NO SIGNS OF DISTRESS. ALL SAFTEY PRECAUTIONS IN PLACE WITH CALL LIGHT IN REACH. WILL CONTINUE TO MONITOR
--- NOTE | 2019-10-07 18:19 | NUR ---
REASSESSMENT OF PAIN AT THIS TIME RESULTING IN 11/01. PT STATES THAT MEDICATION IS WORKING. RESPIRATIONS ARE EVEN AND UNLABORED WITH NO SIGNS OF DISTRESS. ALL SAFETY PRECAUTIONS IN PLACE WITH CALL LIGHT IN REACH. WILL CONTINUE TO MONITOR
[2019-10-07 19:40] VITALS: BP 145/82
--- NOTE | 2019-10-07 19:55 | NUR ---
PT RESTING IN BED, DROWSY. PT REPORTS HAVING A HEADACHE RATING IT A 10/10, PT MEDICATED PER EMAR ORDERS. REPIRATIONS EVEN AND UNLABORED ON RA. LUNGS SOUND COARSE. PEDAL PULSES WEAK. SAFETY PRECAUTIONS IN PLACE. WILL CONTINUE TO MONITOR.
[2019-10-08] VITALS: BP 153/91
--- NOTE | 2019-10-08 00:25 | NUR ---
PT RESTING IN BED NO S/S OF DISTRESS AT THIS TIME. SAFETY PRECAUTIONS IN PLACE. WILL CONTINUE TO MONITOR.
[2019-10-08 04:00] VITALS: BP 150/96
--- NOTE | 2019-10-08 04:10 | NUR ---
PT RESTING IN BED, NO S/S OF DISTRESS AT THIS TIME.
[2019-10-08 08:00] VITALS: BP 146/87
--- NOTE | 2019-10-08 08:52 | NUR ---
SPO2 ON ROOM AIR 87-90%; OXYGEN APPLIED AT 2L VIA NC.
--- NOTE | 2019-10-08 14:04 | NUR ---
pt alert and oriented x4, stated that he felt better today, medicated for headache with tylenol. Mri not done because patient has pacemaker. Patient encourage to use his oxygen, pt states that oygen kerns his nose. Will continue to monitor for safety.
[2019-10-08 17:53] VITALS: BP 173/95
--- NOTE | 2019-10-08 18:14 | NUR ---
Daughter called stating that she did not want the patient to return home, because he was upsetting his , and that he could not do anything for himself. Patient has been c/o headache which medication was given, will continue to monitor for comfort
[2019-10-08 19:04] VITALS: BP 150/85
--- NOTE | 2019-10-08 21:09 | NUR ---
PT SITTING IN WHEELCHAIR, ALERT AND ORIENTED. RESPIRATIONS LABORED ON RA, PT ENCOURAGED TO WEAR HIS O2, PT STATES "I DON'T WANT TO, IT'S GIVING ME A HEADACHE! UGH I'LL PUT IT BACK ON BUT IT'S NOT HELPING" PT AMBULATED FROM WHEELCHAIR TO BED. LUNGS SOUND COARSE. PEDAL PULSES ARE WEAK. PT COMPLAINS OF PAIN IN HIS BACK AND HEAD, PT MEDICATED PER EMAR ORDERS. TELE IN PLACE. WILL CONTINUE TO MONITOR.
[2019-10-09] VITALS (7 sets, daily range): BP systolic 115–172; BP diastolic 52–100
--- NOTE | 2019-10-09 00:16 | NUR ---
PT RESTING IN BED, RESPIRATIONS SHALLOW ON O2 @ 2L VIA NC. NO S/S OF DISTRESS AT THIS TIME. SAFETY PRECAUTIONS IN PLACE. WILL CONTINUE TO MONITOR.
--- NOTE | 2019-10-09 04:23 | NUR ---
PT RESTING IN BED, NO S/S OF DISTRESS AT THIS TIME. SAFETY PRECAUTIONS IN PLACE. WILL CONTINUE TO MONITOR.
--- NOTE | 2019-10-09 07:45 | NUR ---
REPORT RECEIVED FROM LISA BERGERON. PT SITTING UPRIGHT IN BED. REPORTS 10/10 PAIN TO LOWER BACK, RADIATING TO RIGHT LEG. DILAUDID 1 MG IV ADMINISTERED. PAIN MEDICATIONS AND SCHEDULE REVIEWED. REPORTING OF CONCERNS ENCOURAGED. FALL PRECAUTIONS REIFORCED. PT'S OWN WC AT BEDSIDE, PT TRANSFERS SELF TO CHAIR FOR TRANSPORT TO RESTROOM. PLAN OF CARE DISCUSSED. PT STATES "IM MEETING WITH MY FAMILY AND DOCTOR THIS MORNING, AND THEN IM GOING TO REHAB." CALL LIGHT REVIEWED AND IN REACH. PT STAES UNDERSTANDING OF INFORMATION.
--- NOTE | 2019-10-09 10:00 | NUR ---
DR. CORTÉS IN TO SEE PT. PLAN OF CARE UPDATED, NEW ORDER FOR BONE SCAN.
--- NOTE | 2019-10-09 10:30 | NUR ---
PER RADIOLOGY NO NUCLEAN MEDICINE TESTS AVAILABLE UNTIL SATURDAY. DR CORTÉS NOTIFIED.
--- NOTE | 2019-10-09 12:30 | NUR ---
NEW ORDER FOR CONSULT TO INFECTIOUS DISEASE. CONSULT CALLED BY RAÚL FAYE.
--- NOTE | 2019-10-09 16:10 | NUR ---
CONSULTATION VIA TELEMEDICINE WITH DR. BYERS COMPLETED AT THIS TIME.
--- NOTE | 2019-10-09 19:00 | NUR ---
REPORT RECEIVED FROM Carla DEWITT RN; PT IN SUPINE POSITION WATCHING TV; NO COMPLAINTS OR CONCERNS VOICED; CALL SANCHEZ WITHIN REACH; WILL CONTINUE TO MONITOR.
--- NOTE | 2019-10-09 21:00 | NUR ---
PT RESTING WITH EYES CLOSED; AROUSED EASILY TO VERBAL STIMULI; PT C/O BACK PAIN 10/10, MEDICATED ORDERED; TELE MONITOR IN PLACE, SR IVCD HR 74, PER ER MONITORING; #[address], NO REDNESS OR EDEMA NOTED, FLUSHES WELL; ACCU CHECK 323, NOVOLOG SLIDING SCALE ORDERED; PT REQUESTING SNACK, PROVIDED; PT ORIENTED TO ROOM AND CALL SYSTEM; WILL CONTINUE TO MONITOR.
--- NOTE | 2019-10-10 02:02 | NUR ---
PT AROUSES EASILY UPON ENTERING ROOM; REQUESTING SNACK, PROVIDED; CALL SANCHEZ WITHIN REACH; WILL CONTINUE TO MONITOR.
[2019-10-10 04:58] VITALS: BP 182/96
--- NOTE | 2019-10-10 05:18 | NUR ---
VS OBTAINED, BP 182/96, PT MEDICATED WITH PRN HYDRALAZINE IV ORDERED; IV SITE FLUSHES WELL; NO COMPLAINTS VOICED AT THIS TIME; CALL SANCHEZ WITHIN REACH; WILL CONTINUE TO MONITOR.
[2019-10-10 07:39] VITALS: BP 154/82
--- NOTE | 2019-10-10 07:45 | NUR ---
PT IS A&O X3. PT STATED PAIN IN BACK 12/02. MEDICATED PT WITH ROXICODONE. LUNGS SOUND/ EXPIRATORY WHEEZES. ICE PROVIDED PER PT REQUEST.TELE IN PLACE.PT DENIES ANY OTHER NEEDS AT THIS TIME. CALL LIGHT IN REACH.
[2019-10-10 08:58] LABS: HEMATOCRIT 57.3 % (39.0-50.0); HEMOGLOBIN 17.4 g/dl (14.0-18.0); MEAN CELL VOLUME 93.6 fL CALC (80.0-100.0); MEAN CORPUSCULAR HGB 28.4 pG CALC (26.0-32.0); MEAN CORPUSCULAR HGB CONC 30.4 g/dL CAL (32.0-36.0); RED BLOOD COUNT 6.12 mill/uL (4.70-6.10); RED CELL DISTRI WIDTH 14.2 % (11.5-15.5)
[2019-10-10 09:17] LABS: ALBUMIN 4.8 g/dL (3.2-5.0); ALKALINE PHOSPHATASE 103 u/l (38-126); ANION GAP 16 (6-22 (CALC)); BILIRUBIN, TOTAL 0.7 mg/dL (0.0-1.4); BUN 46 mg/dL (8-23); BUN/CREATININE RATIO 45 (12-20 (CALC)); C-REACTIVE PROTEIN < 0.5 mg/dL (0-0.9); CARBON DIOXIDE 25 mmol/l (22-30); CHLORIDE 100 mmol/l (95-108); GFR > 60 ML/MIN (>=60 (CALC)); GFR FOR AFR.AMER. > 60 ML/MIN (>=60 (CALC)); POTASSIUM 4.8 mmol/l (3.5-5.1); SGOT/AST 23 u/l (19-48); SODIUM 136 mmol/l (137-146); TOTAL PROTEIN 8.3 g/dL (6.3-8.2)
[2019-10-10 11:00] VITALS: BP 123/72
--- NOTE | 2019-10-10 11:25 | NUR ---
PT STATED HE HAS A HEADACHE. MEDICATED PT WITH TYLENOL. TOLD PT I HAVE HIS DC PAPERS READY. HE CALLED HIS BUT NO ONE ANSWERED. SO HE LEFT A MESSAGE. PT DENIES ANY OTHER NEEDS AT THIS TIME. CALL LIGHT IN REACH.
--- NOTE | 2019-10-10 12:03 | NUR ---
PT IS EATING HER LUNCH WITH NO S/S OF DISTRESS NOTED. PT STATED THAT THE PAIN MEDICATION HELPED WITH HER PAIN IN HER LEGS. PT DENIES NEEDS . CALL LIGHT IN REACH.
--- NOTE | 2019-10-10 12:04 | NUR ---
PT DAUGHTER APOLINAR () CALLED AND STATED THAT THEY CAN'T TAKE CARE OF HER DAD AT THIS TIME. SHE STATED THAT DOCOTOR TOLD HER THEY WERE GOING TO DC PT ON TILL SATURDAY. NOTIFIED DR. PENA AND CASE MANAGEMENT EDGAR.
--- NOTE | 2019-10-10 14:39 | NUR ---
PT IS WHEELING HIM SELF IN THE HALLWAYS WITH NO S/S OF DISTRESS NOTED.
[2019-10-10] MEDS ORDERED: MEDDOSEPAK PO (15:25)
[2019-10-10 15:30] VITALS: BP 125/66
--- NOTE | 2019-10-10 15:46 | NUR ---
PT IS SLEEPING IN BED ON HIS RIGHT SIDE WITH NO S/S OF DISTRESS NOTED. CALL LIGHT IN REACH.
[2019-10-10 19:15] VITALS: BP 136/82
[2019-10-11] VITALS (7 sets, daily range): BP systolic 110–171; BP diastolic 57–92
--- NOTE | 2019-10-11 10:48 | NUR ---
PT IN BED WITH EYES OPEN. ABLE TO MAKE NEEDS KNOWN. SKIN WARM TO TOUCH. HAS MINIMAL PAIN IN RIGHT HIP AND REPOSITIONED IN BED. MEDICATIONS GIVEN AND TOLERATED WELL. CONTINENT OF B/B AND ABLE TO TRANSFER SELF TO TOILET. MEAL AND FLUID INTAKE ADEQUATE. PT HAS EXPIRATORY WHEEZING NOTED. O2 SAT 91 % ROOM AIR AND PLACED ON OXYGEN THERAPY. HOB ELEVATED AND CALL LIGHT WITHIN REACH. WILL CONTINUE TO OBSERVE.
--- NOTE | 2019-10-11 15:47 | NUR ---
PT SITTING UP IN WHEELCHAIR WITH NO COMPLICATIONS NOTED. MEDS GIVEN AND TOLERATED WELL. UP TO TOILET WITH NO ASSIST NEEDED. USES URINAL NEEDED. MEAL AND FLUID INTAKE GOOD. ABLE TO PROPEL SELF IN WHEELCHAIR. COMPLAINTS OF PAIN IN RIGHT HIP AND MEDICATED PER MD ORDERS AND EFFECTIVE. WILL CONTINUE TO OBSERVE.
--- NOTE | 2019-10-11 18:22 | NUR ---
UP IN WHEELCHAIR WITH NO S/S OF DISTRESS/DISCOMFORT. ABLE TO VERBALIZE NEEDS. RESPIRATIONS ARE EVEN AND NON LABORED. MEDS GIVEN AND TOLERATED WELL.
--- NOTE | 2019-10-11 19:00 | NUR ---
REPORT RECEIVED FROM Analisa MOREJON RN, CARE OF PT ASSUMED AT THIS TIME.
--- NOTE | 2019-10-11 20:10 | NUR ---
PT LAYING IN BED RESTING, NO APPARENT DISTRESS, RESPIRATIONS REG & UNLABORED. PHYSICAL ASSESMENT COMPLETE. PT C/0 NECK, BACK, AND R HIP PAIN. RATES 12/02. REQUESTS PRN ANALGESIC. PRN ANALGESIC ADMINISTERED AND SCHEDULED MEDS ADMINISTERED, SEE E-MAR. HS SNACK PROVIDED PER PTS REQUEST.PT DENIES FURTHER NEEDS AT THIS TIME. PLAN OF CARE REVIEWED, PT DENIES QUESTIONS, VERBALIZES UNDERSTANDING. ITEMS WITHIN REACH, BED LOCKED IN LOW POSITION W/ BEDRAILS UP X2. CALL SANCHEZ WITHIN REACH, AGREES TO CALL PRN.
--- NOTE | 2019-10-11 21:24 | NUR ---
PRN SONATA ADMINISTERED FOR SLEEP PER PTS REQUEST. GLUCOSE 248mg/dl. SLIDING SCALE NOVOLG COVERAGE ADMINISTERED. SEE E-MAR.
--- NOTE | 2019-10-12 01:00 | NUR ---
PT APPEARS TO BE SLEEPING COMFORTABLY, NO APPARENT DISTRESS, RESPIRATIONS REGULAR AND UNLABORED. ITEMS REMAIN WITHIN REACH, BED REMAINS LOCKED IN LOW POSITION W/ BEDRAILS UP X2. CALL SANCHEZ REMAINS WITHIN REACH.
[2019-10-12 04:00] VITALS: BP 165/100
--- NOTE | 2019-10-12 05:47 | NUR ---
ASSESMENT UNCHANGED FROM BEGINING OF SHIFT BASELINE ASSESMENT. AM HEMODYNAMICS WNL/ STABLE. PT AFEBRILE. PT DENIES NEEDS AT THIS TIME. ITEMS REMAIN WITHIN REACH, BED REMAINS LOCKED IN LOW POSITION W/ BEDRAILS UP X2. CALL SANCHEZ REMAINS WITHIN REACH, AGREES TO CALL PRN.
--- NOTE | 2019-10-12 07:30 | NUR ---
RECIEVED REPORT FROM LISA HAIRSTON. PT SLEEPING IN L[facility]OWLERS [facility]. RESPIRATIONS ARE EVEN AND UNLABORED WITH NO SIGNS OF DISTRESS. ALL SAFETY PRECAUTIONS ARE IN PLACE WITH CALL LIGHT IN REACH. WILL CONTINUE TO MONITOR
[2019-10-12 07:56] VITALS: BP 158/75
--- NOTE | 2019-10-12 08:00 | NUR ---
PT COMPLAINS OF 9/10 BACK PAIN, ROXICODONE TO BE ADMINISTERED WITH MORNING MEDICTAIONS
--- NOTE | 2019-10-12 09:54 | NUR ---
Pt was seen this am for therex and amb. He was indep in transitioning from supine to sitting, then given SBA to sit to stand. Pt performed STS with arm support to push self up and held onto RW for improved standing balance x 10 reps. Then, he did sitting heel raises x 10 reps x 3 sets. He was able to transfer from bed to wheelchair with RW, CGA and verbal cues for proper use of walker. Pt ambulated w/ RW and CGA x 30 ft x 2 while nurse assisted by pushing a wheelchair behind the pt for added safety as pt is unstable and has a tendency to retropulse. Pt safely returned to his room w/o adverse reactions to tx, with slight dyspnea that resolved quickly. [facility] score: 17 points May is appropriate for home health physical therapy for gait, balance and gen conditioning to improve his functional level.
--- NOTE | 2019-10-12 10:18 | NUR ---
REASSESSMENT OF PAIN AT THIS TIME. PT STATES THAT PAIN IS NOW A 7/10 BY MEDICATION IS WORKING. RSPIRATIONS ARE EVEN AND UNLABORED WITH NO SIGNS OF DISTRESS. ALL SAFETY PRECAUTIONS ARE IN [PLACE WITH CALL LIGHT IN REACH. WILL CONTINUE TO MONITOR
[2019-10-12 11:19] VITALS: BP 142/74
--- NOTE | 2019-10-12 11:56 | NUR ---
ASSESSMENT AND VITALS COMPLETED AT THIS TIME. BP 158/70, HR 64, O2 95% ON ROOM AIR. RESPIRATIONS ARE EVEN AND UNLABORED WITH NO SIGNS OF DISTRESS. LUNG SOUNDS ARE CLEAR. HEART RHYTHM IS NORMAL WITH TELE IN PLACE. BOWEL SOUNDS ARE ACTIVE IN ALL QUADRANTS WITH NO TENDERNESS. LAST REPORTED BM 10/11/19. RADIAL AND PEDAL PULSES ARE STRONG WITH NORMAL CAPILLARY REFILL. #20G LOCATED IN RAC FLUSHED, SITE APPEARS HEALTHY AND PATENT. PT DENIES ANY PAIN OR DISCOMFORTS AT THIS TIME. ALL SAFETY PRECAUTIONS IN PLACE WITH CALL LIGTH IN REACH. ALL SAFETY PRECAUTIONS ARE IN PLACE WITH CALL LIGHT IN REACH. WILL CONTINUE TO MONITOR
--- NOTE | 2019-10-12 12:15 | NUR ---
PT SITTTING UP IN WHEELCHAIR EATING LUNCH. REPSIRATIONS ARE EVEN AND UNLABORED WITH NO SIGNS OF DISTRESS. PT DENIES ANY PAIN OR DISCOMFORTS AT THIS TIME. ALL SAFETY PRECAUTIONS ARE IN PLACE WITH CALL LIGHT IN REACH. WILL CONTINUE TO MONITOR.
--- NOTE | 2019-10-12 12:38 | NUR ---
PT TRANSPORTED TO [facility] IN[facility] CONDITION ACCOMPAINED BY RAÚL CERVANTES.
--- NOTE | 2019-10-12 13:37 | NUR ---
PT ARRIVED BACK TO MED SURG ROOM 272 IN STABLE CONDITION. PT IS BACK IN BED RESPIRATIONS ARE EVEN AND UNALBORED WITH NO SIGNS OF DISTRESS. ALL SAFETY PRECAUTIONS ARE IN PLACE WITH CALL LIGHT IN REACH. WILL CONTINUE TO MONITOR
--- NOTE | 2019-10-12 15:16 | NUR ---
PT REFUSED NEW IV AT THIS TIME. PT DID ALLOW WRITTER TO CHANGE IV DRESSING . IV FLUSHED TO CHECK PATENACY. SITE APPEARS HEALTHY AND PATENT.
--- NOTE | 2019-10-12 16:03 | NUR ---
PT ROLLING IN HALLWAY VIA WHEELCHAIR. PT DID BECOME VERY EMOTIONAL WHEN SPEAKING TO WRITTER ABOUT HIS FAMILY "NOT WANTING HIM BACK HOME ". WRITTER EXPRESSED TO PT THAT THE MAIN FOCUSE IS HIS HEALTH AND THIS TIME. AFTER SPEAKING WITH PT, PT DID CALM DOWN AND WANTED ICE CREAM. SUGGESTED SUGAR FREE PUDDING. PT ACCEPTED. DIETARY CALLED FOR SUGAR FREE PUDDING. PT DENIES ANY PAIN OR DISCOMFORTS AT THIS TIME. ALL SAFETY PRECAUTIONS REMAIN IN PLACE WITH CALL LIGHT IN REACH.WILL CONTINUE TO MONITOR
[2019-10-12 16:21] VITALS: BP 133/79
[2019-10-12 19:00] VITALS: BP 144/72
--- NOTE | 2019-10-12 19:00 | NUR ---
RECEIVED REPORT FROM NURSE AIKEN, PATIENT CURRENTLY RESTING IN BED, C/O OF BACK PAIN PS 8/10 AND HEADACHE, BREATHING EVEN AND UNLABORED, WILL MEDICATE.
--- NOTE | 2019-10-12 21:00 | NUR ---
PATIENT ALERT ORIENTED ABLE TO MAKE NEEDS KNOWN, WITH SALINE LOCK ON RAC, REMAINS ON TELE PACED 69, LBM 7/20, BREATHING UNLABORED, CALL LIGHT AT REACH.
[2019-10-13] VITALS: BP 143/87
--- NOTE | 2019-10-13 | NUR ---
PATIENT AWAKE AT THIS TIME, WATCHING TV, BREATHING EVEN AND UNLABORED KEMAL;L LIGHT AT REACH.
[2019-10-13 04:00] VITALS: BP 136/77
--- NOTE | 2019-10-13 04:15 | NUR ---
PATIENT APPEARS TO BE SLEEPING WITH EYES CLOSED, NOT IN DISTRESS NO DISCOMFORTS NOTED, CALL LIGHT AT REACH.
[2019-10-13 07:46] VITALS: BP 168/94
--- NOTE | 2019-10-13 07:46 | NUR ---
RECIEVED REPORT FROM Carla MOORE RN. PT RESTING IN SEMI FOWLERS POSTIION UPON ENTERING ROOM. INTRODUCED SELF TO PT AND DISCUSSED POC. ASSESSMENT AND VITALS COMPLETED AT THIS TIME. BP 168/94,MORNING BP MEDS TO BE ADMINISTERED. HR 66, O2 94% ON ROOM AIR. RESPIRATIONS ARE EVEN AND UNALBORED WITH NO SIGNS OF DISTRESS. LUNG SOUNDS ARE CLEAR, TP DENIES ANY SOB. HEART RHYTHM IS NORMAL WITH TELE IN PLACE. BOWEL SOUNDS ARE ACTIVE IN ALL QUADRANTS, LAST REPORTED BM 10/13/19. RADIAL AND PEDAL PULSES ARE STRONG WITH NORMAL CAPILLARY REFILL. LOW EXTREMITIES APPEAR MODERATLEY RED. PT INFORMS WRITTER THAT HE HAS POOR CIRCULATION TO HIS LEGS, WHEN ASKING PT IF HE WANTED TO ELEVATE THEM, PT REFUSED. #20G IN RAC FLUSHED, SITE APPEARS HEALTHY AND PATENT. SITE IS DUE FOR CHANGING BUT PT REFUSES, STATING THAT "IF IT STILL WORKS LEAVE IT". PT COMPLAINS OF 7/10 LOWER BACK PAIN, ROXICODONE TO BE ADMINISTERED WITH MORNING MEDICATIONS. URINAL EMPTIED, URINE IS CLEAR AND YELOLOW.PT DENIES OF ANY OTHER PAINS OR DSICOMFORTS AT THIS TIME. ALL SAFETY PRECAUTIONS ARE IN PLACE WITH CALL LIGHT IN REACH. WILL CONTINUE TO MONITOR
--- NOTE | 2019-10-13 07:50 | NUR ---
DR MUELLER AT BEDSIDE DISCUSSING POC.
--- NOTE | 2019-10-13 09:48 | NUR ---
PT IN ROOM WORKING WITH PT AT THIS TIME
--- NOTE | 2019-10-13 10:21 | NUR ---
REASSESSMENT OF PAIN AT THIS TIME.PT REPORTS PAIN IS NOW A 5/10 AND MEDICATION IS WORKING. RESPIRATIONS ARE EVEN AND UNLABORED WITH NO SIGNS OF DISTRESS. PT DENEIS ANY OTHER PAINS OR DISOCMFORTS. ALL SAFETY PRECAUTIONS AE IN PLACE WITH CALL LGHT IN [facility]. WILL CONTINUE TO MONTIOR
--- NOTE | 2019-10-13 10:59 | NUR ---
patient was seen for gait training and therex. He was sitting in w/c upon entering room. Gait training with RW and CGA 35ft x2 with Thu holding w/c for added safety. Then LAQ 2x10, standing heel raises 2x10, mini squats 1x10, marching in place 3x10, standing hip abduction 1x10. Patient was given a HEP by SHAD Lo. ampac=[id number]
--- NOTE | 2019-10-13 11:28 | NUR ---
CONSULT WITH DR BYERS OVER IPADWITH PT AT THIS TIME.
--- NOTE | 2019-10-13 11:53 | NUR ---
NOTIED MATILDA, ANRP OF PT GLUCOSE, CHANGE OF NOVOLOG AT THIS TIME.
--- NOTE | 2019-10-13 12:13 | NUR ---
PT LAYING IN LOW FOWLERS POSITION. RESPIRATIONS ARE EVEN AND UNLABORED WITH NO SIGNS OF DISTRESS. PT DENIES OF ANY PAIN OR DISCOMFORTS AT THIS TIME.ALL SAFETY PRECAUTIONS ARE IN PLACE WITH CALL LIGHT IN REACH. WILL CONTINUE TO MONITOR
[2019-10-13 12:33] VITALS: BP 110/64
--- NOTE | 2019-10-13 15:50 | NUR ---
PT SLEEPING IN LOW FOWLERS POSITION ON LEFT SIDE. RESPIRATIONS ARE EVEN AND UNLABORED WITH NO SIGNS OF DISTRESS. NO SIGNS OF ANY PAIN OR DISCOMFORTS AT THIS TIME. ALL SAFETY PRECAUTIONS ARE IN PLACE WITH CALL LIGHT IN REACH. WILL CONTINUE TO MONITOR
[2019-10-13 15:58] VITALS: BP 128/70
--- NOTE | 2019-10-13 19:00 | NUR ---
RECEIVED REPORT FROM NURSE AIKEN PATIENT AWAKE WATCHING, NO DISCOMFORTS NOTED AT THIS TIME.
[2019-10-13 19:15] VITALS: BP 140/75
--- NOTE | 2019-10-13 21:00 | NUR ---
PATIENT ALERT ORIENTED ABLE TO MAKE NEEDS KNONW, WITH SALINE LOCK ON RAC PATENT AND FLUSHES WELL, REMAINS ON TELE PACED 73, C/O PAIN ON LOWER BACK AND REQUESTING TYLENOL, WILL MEDICATE.
[2019-10-14] VITALS: BP 124/73
--- NOTE | 2019-10-14 00:38 | NUR ---
PATIENT APPEARS TO BE SLEEPING WITH EYES CLOSED, BREATHING EVEN AND UNLABORED, CALL LIGHT AT REACH.
[2019-10-14 03:30] VITALS: BP 158/79
--- NOTE | 2019-10-14 04:00 | NUR ---
PATIENT AWAKE AT TYHIS TIME, C/O OF LOWER BACK PAIN PRN ROXICODONE GIVEN WILL REEVALUATE, CALL LIGHT AT REACH.
[2019-10-14 05:53] LABS: HEMATOCRIT 53.1 % (39.0-50.0); HEMOGLOBIN 16.3 g/dl (14.0-18.0); MEAN CELL VOLUME 94.3 fL CALC (80.0-100.0); MEAN CORPUSCULAR HGB CONC 30.7 g/dL CAL (32.0-36.0); RED BLOOD COUNT 5.63 mill/uL (4.70-6.10); RED CELL DISTRI WIDTH 13.9 % (11.5-15.5)
[2019-10-14 06:22] LABS: ANION GAP 10 (6-22 (CALC)); BUN 49 mg/dL (8-23); BUN/CREATININE RATIO 38 (12-20 (CALC)); CARBON DIOXIDE 30 mmol/l (22-30); CHLORIDE 99 mmol/l (95-108); CREATININE 1.3 mg/dL (0.7-1.3); GFR 54 ML/MIN (>=60 (CALC)); GFR FOR AFR.AMER. > 60 ML/MIN (>=60 (CALC)); SODIUM 133 mmol/l (137-146)
[2019-10-14 06:24] LABS: POTASSIUM 5.7 mmol/l (3.5-5.1)
[2019-10-14 07:55] VITALS: BP 150/90
--- NOTE | 2019-10-14 07:55 | NUR ---
RECIEVED REPORT FROM FANNY. ASSESSMENT AND VITALS COMPLETED AT THIS TIME. BP 150/90, HR 50, O2 97% ON ROOM AIR. RESPIRATIONS ARE EVEN AND UNLABORED WITH NO SIGNS OF DISTRESS. LUNG SOUNDS ARE CLEAR. HEART RHYTHM IS NORMAL WITH TELE IN PLACE. BOWEL SOUNDS ARE ACTIVE IN ALL QUADRANTS WITH NO TENDERNESS, LAST REPORTED BM 10/13/19. RADIAL AND PEDAL PULSES ARE STRONG WITH NORMAL CAPILLARY REFILL. PT PRESENTS WITH MODERATLY REDDENED SKIN TO BLL, ADVISED PT TO ELEVATE, PT REFUSED STATING "THEY ARE ALWAYS LIKE THAT." #20 IN RAC FLUSHED, SITE APPEARS HEALTHY AND PATENT. PT DENIES OF ANY PAIN OR DISCOMFORTS AT THIS TIME. ALL SAFETY PRECAUTIONS REMAIN IN PLACE WITH CALL LIGHT IN REACH. WILL CONTINUE TO MONTIOR.
--- NOTE | 2019-10-14 08:28 | NUR ---
DR CORTÉS AT BEDSIDE DISCUSSING POC.
--- NOTE | 2019-10-14 08:38 | NUR ---
DR CORTÉS AT BEDSIDE DISCUSSING POC
[2019-10-14 10:45] VITALS: BP 151/94
--- NOTE | 2019-10-14 12:34 | NUR ---
Treatment plan explained of which pt. agrees to gait and exercise. Supine to sit at EOB with verbal cues. Sit to stand with CGA followed by ambulation 2x50 feet using walker and with verbal cues for breathing technique and safety awareness. Pt. then assisted back in bed with HOB elevated where he was guided in therapeutic exercises x 10 repetitions each: ankle pumps on L, quad. sets, glut. sets and hip abductions with red t-band. 02 sats monitored and maintained 88-94% throughout on room air. Pt. able to return to and maintain 94% at the end of session with breathing exercises. Post session pt. without questions/concerns and is left resting comfortably in bed with call light+bedside table within reach. AMPAC score:17.
[2019-10-14] MEDS ORDERED: OXYCODONE15 MG PO (13:50)
[2019-10-14] MEDS ORDERED: PREDNISONE10 MG PO (13:50)
[2019-10-14] MEDS ORDERED: LYRICA75 MG PO (13:50)
--- NOTE | 2019-10-14 14:58 | NUR ---
EDUCATED PT ON DISCHARGE INSTRUCTIONS AND NEW MEDICTAIONS; LYRICA, OXYCODONE, AND PRESNISONE. PT VERBALIZED UNDERSTANDING. SCHEDULED MDS RN TIME @1600. IV REMOVED WITH CATHATER STILL INTACT, PT TOLERTAED WELL.ALL SAFETY RECAUTIONS ARE IN PLACE WITH CALL LIGTH IN REACH. WILL CONTINUW TO MONITOR.
--- NOTE | 2019-10-14 16:25 | NUR ---
Discharge instructions given. Patient verbalizes understanding of same. Discharged in stable condition via Wheelchair to [facility] with staff. All belongings sent with pt. PT LEFT FLOOR IN STABLE CONDITION VIA WHEELCHAIR WITH ALL BELONGINGS AND HOME MEDICATIONS FROM PHARMACY ACCOMPAINED BY [facility]
--- NOTE | 2019-10-14 16:43 | NUR ---
REPORT GIVEN TO LISA BEASLEY FROM [facility]
[2019-12-22] MEDS ORDERED: CYMBALTA30 MG PO (16:30)
[2019-12-22] MEDS ORDERED: FULL SPECTRUM S1 CAP PO (16:31)
== END 2019-10-14 16:35 | DRG 552 ==
LOC: ED 07:37 → ED-I 11:26 → ED 11:42 → MS2 11:43 → ED-I 11:43 → MS2 12:22
PROVIDERS: Family Medicine; Nurse Practitioner; ADMIT Internal Medicine; ATTEND Internal Medicine
DX: M47.26 Other spondylosis with radiculopathy, lumbar region (principal); I13.0 Hypertensive heart and chronic kidney disease with heart failure and stage 1 through stage 4 chronic kidney disease, or unspecified chronic kidney disease; M46.46 Discitis, unspecified, lumbar region; I50.9 Heart failure, unspecified; E11.22 Type 2 diabetes mellitus with diabetic chronic kidney disease; N18.9 Chronic kidney disease, unspecified; E11.51 Type 2 diabetes mellitus with diabetic peripheral angiopathy without gangrene; J44.9 Chronic obstructive pulmonary disease, unspecified; E78.5 Hyperlipidemia, unspecified; F41.9 Anxiety disorder, unspecified; F32.9 Major depressive disorder, single episode, unspecified; F17.290 Nicotine dependence, other tobacco product, uncomplicated; N40.0 Benign prostatic hyperplasia without lower urinary tract symptoms; I25.10 Atherosclerotic heart disease of native coronary artery without angina pectoris; Z96.89 Presence of other specified functional implants; Z79.891 Long term (current) use of opiate analgesic; Z79.02 Long term (current) use of antithrombotics/antiplatelets; Z95.810 Presence of automatic (implantable) cardiac defibrillator; Z98.1 Arthrodesis status; Z11.59 Encounter for screening for other viral diseases
CPT/HCPCS: A9503; G0378; Q3014

== ENCOUNTER 2019-11-07 09:54 | Observation (INO) | payer MEDICARE, BC ==
[~2019-11-07] VITALS: Ht 188 cm; Wt 98.5 kg
[~2019-11-07 09:54] MED LIST changes: +ALBUTEROL108 MCG/AC PO; +ALLERGY RE50 MCG/ACT; +ENTRESTO 24-261 TAB; +HYDROMORPHONE; +LYRICA75 MG PO; +MAGNESIUM296 ML/BTL PO; +NORVASC5 M1 PO; +PREDNISONE10 MG PO
[2019-11-07 10:28] LABS: HEMATOCRIT 49.6 % (39.0-50.0); IMMATURE GRANULOCYTES 0.6 % (0.0-5.0); MEAN CELL VOLUME 93.8 fL CALC (80.0-100.0); MEAN CORPUSCULAR HGB 28.4 pG CALC (26.0-32.0); MEAN CORPUSCULAR HGB CONC 30.2 g/dL CAL (32.0-36.0); NEUT# 10.35 thou/uL (1.82-7.42); RED BLOOD COUNT 5.29 mill/uL (4.70-6.10); RED CELL DISTRI WIDTH 14.7 % (11.5-15.5)
[2019-11-07 10:40] LABS: ALBUMIN 4.1 g/dL (3.2-5.0); ALKALINE PHOSPHATASE 114 u/l (38-126); ANION GAP 10 (6-22 (CALC)); BILIRUBIN, TOTAL 0.8 mg/dL (0.0-1.4); BUN 18 mg/dL (8-23); BUN/CREATININE RATIO 18 (12-20 (CALC)); CARBON DIOXIDE 30 mmol/l (22-30); CHLORIDE 100 mmol/l (95-108); GFR > 60 ML/MIN (>=60 (CALC)); GFR FOR AFR.AMER. > 60 ML/MIN (>=60 (CALC)); SGOT/AST 23 u/l (19-48); SODIUM 135 mmol/l (137-146); TOTAL PROTEIN 7.6 g/dL (6.3-8.2)
[2019-11-07 10:45] LABS: POTASSIUM 4.5 mmol/l (3.5-5.1)
[2019-11-07 10:51] LABS: MYOGLOBIN 66 ng/mL (0 - 121)
[2019-11-07] MEDS ORDERED: FARXIGA5 MG PO (11:59)
[2019-11-07] MEDS ORDERED: NIACIN ER500 M1 PO (11:59)
[2019-11-07] MEDS ORDERED: ENTRESTO 24-261 TAB PO (12:00)
[2019-11-07] MEDS ORDERED: METFORMIN HCL1000 MG PO (12:00)
[2019-11-07] MEDS ORDERED: LOSARTAN POTASS25 MG PO (12:01)
[2019-11-07] MEDS ORDERED: GABAPENTIN300 M2 PO (12:01)
[2019-11-07] MEDS ORDERED: ATORVASTATIN CA40 MG PO (12:05)
[2019-11-07] MEDS ORDERED: FINASTERIDE5 MG PO (12:05)
[2019-11-07] MEDS ORDERED: TAMSULOSIN HCL0.4 MG PO (12:05)
[2019-11-07] MEDS ORDERED: SPIRONOLACTONE25 MG PO (12:06)
[2019-11-07 13:30] VITALS: BP 133/68
[2019-11-07 15:14] LABS: URINE BILIRUBIN - DIPSTICK NEGATIVE (NEGATIVE); URINE BLOOD DIPSTICK NEGATIVE (NEGATIVE); URINE COLOR YELLOW; URINE GLUCOSE - DIPSTICK >=1000 mg/dL (NEGATIVE); URINE KETONE 15 mg/dL (NEGATIVE); URINE LEUK ESTERASE NEGATIVE (NEGATIVE); URINE NITRITE - DIPSTICK NEGATIVE (Negative); URINE PROTEIN - DIPSTICK NEGATIVE (NEG-TRACE); URINE SPECIFIC GRAVITY 1.015; URINE UROBILINOGEN - DIPSTICK 0.2 E.U./dL (0.2)
[2019-11-07 17:07] VITALS: BP 152/84
[2019-11-07 19:00] VITALS: BP 140/73
[2019-11-08 03:43] VITALS: BP 150/78
[2019-11-08 05:43] LABS: ANION GAP 9 (6-22 (CALC)); BUN 26 mg/dL (8-23); BUN/CREATININE RATIO 24 (12-20 (CALC)); CARBON DIOXIDE 27 mmol/l (22-30); CHLORIDE 104 mmol/l (95-108); CREATININE 1.1 mg/dL (0.7-1.3); GFR > 60 ML/MIN (>=60 (CALC)); GFR FOR AFR.AMER. > 60 ML/MIN (>=60 (CALC)); MAGNESIUM 2.3 mg/dL (1.6-2.3); POTASSIUM 3.7 mmol/l (3.5-5.1); SODIUM 136 mmol/l (137-146)
[2019-11-08 07:40] VITALS: BP 171/86
[2019-11-08] MEDS ORDERED: BACTRIM DS1 TAB PO (11:39)
[2019-12-22] MEDS ORDERED: CYMBALTA30 MG PO (16:30)
[2019-12-22] MEDS ORDERED: FULL SPECTRUM S1 CAP PO (16:31)
== END 2019-11-08 14:09 | disposition home health service (06) ==
LOC: ED 09:54 → ED-I 11:22 → ED 11:32 → MS2 11:33 → ED-I 11:33 → MS2 12:19
PROVIDERS: Emergency Medicine; ADMIT Internal Medicine; ATTEND Internal Medicine
DX: L03.116 Cellulitis of left lower limb (principal); R60.0 Localized edema; I11.0 Hypertensive heart disease with heart failure; I50.9 Heart failure, unspecified; J44.9 Chronic obstructive pulmonary disease, unspecified; E11.51 Type 2 diabetes mellitus with diabetic peripheral angiopathy without gangrene; I25.10 Atherosclerotic heart disease of native coronary artery without angina pectoris; I42.9 Cardiomyopathy, unspecified; E78.5 Hyperlipidemia, unspecified; N40.0 Benign prostatic hyperplasia without lower urinary tract symptoms; M54.5 Low back pain; G89.29 Other chronic pain; F41.9 Anxiety disorder, unspecified; F32.9 Major depressive disorder, single episode, unspecified; F17.290 Nicotine dependence, other tobacco product, uncomplicated; Z79.84 Long term (current) use of oral hypoglycemic drugs; Z95.810 Presence of automatic (implantable) cardiac defibrillator; Z11.59 Encounter for screening for other viral diseases
CPT/HCPCS: G0378; J1650

== ENCOUNTER 2019-12-13 20:04 | Observation (INO) | payer MEDICARE, BC ==
[~2019-12-13] VITALS: Ht 188 cm; Wt 94.0 kg
[~2019-12-13 20:04] MED LIST changes: +ENTRESTO 24-261 TAB PO; +FARXIGA5 MG PO; +LOSARTAN POTASS25 MG PO; +METFORMIN HCL1000 MG PO; +NIACIN ER500 M1 PO; +SPIRONOLACTONE25 MG PO; +TAMSULOSIN HCL0.4 MG PO
--- NOTE | 2019-12-13 20:24 | NUR ---
PT GIVEN GOWN BUT REFUSES TO REMOVE SHORTS.
--- NOTE | 2019-12-13 20:30 | NUR ---
PT VERY ANXIOUS AND DOESN'T WANT A LOU...RELUCTANTLY ALLOWS CATHETER TO BE INSERTED. #16 INSERTED AFTER UROJECT WITHOUT DIFFICULTY. YODER RED URINE DRAINING. SAMPLE SENT TO LAB.
[2019-12-13 20:48] LABS: URINE BLOOD DIPSTICK LARGE (NEGATIVE); URINE COLOR RED; URINE GLUCOSE - DIPSTICK NEGATIVE (NEGATIVE); URINE KETONE TRACE mg/dL (NEGATIVE); URINE PH 6.5 (4.5-8.0); URINE PROTEIN - DIPSTICK >=300 mg/dL (NEG-TRACE); URINE SPECIFIC GRAVITY 1.015
[2019-12-13 21:07] LABS: HEMATOCRIT 48.1 % (39.0-50.0); HEMOGLOBIN 14.7 g/dl (14.0-18.0); IMMATURE GRANULOCYTES 0.4 % (0.0-5.0); MEAN CELL VOLUME 91.8 fL CALC (80.0-100.0); MEAN CORPUSCULAR HGB 28.1 pG CALC (26.0-32.0); MEAN CORPUSCULAR HGB CONC 30.6 g/dL CAL (32.0-36.0); NEUT# 11.84 thou/uL (1.82-7.42); RED BLOOD COUNT 5.24 mill/uL (4.70-6.10); RED CELL DISTRI WIDTH 14.6 % (11.5-15.5)
[2019-12-13 21:09] LABS: URINE BILIRUBIN - DIPSTICK NEGATIVE (NEGATIVE); URINE LEUK ESTERASE MODERATE (NEGATIVE); URINE NITRITE - DIPSTICK POSITIVE (Negative)
--- NOTE | 2019-12-13 21:10 | NUR ---
C/O PAIN...ABD SOFT/NON-TENDER. STATES BLADDER FEELS FINE. PENIS HURTS FROM CATHETER.
[2019-12-13 21:11] LABS: URINE RBC >100 RBC/hpf (0-5)
[2019-12-13 21:12] LABS: URINE BACTERIA FEW hpf; URINE SQUAMOUS EPITHELIAL CELL FEW EPI/hpf (0-FEW)
[2019-12-13 21:15] LABS: ALKALINE PHOSPHATASE 100 u/l (38-126); ANION GAP 11 (6-22 (CALC)); BILIRUBIN, TOTAL 0.5 mg/dL (0.0-1.4); BUN 26 mg/dL (8-23); BUN/CREATININE RATIO 25 (12-20 (CALC)); CARBON DIOXIDE 29 mmol/l (22-30); CHLORIDE 97 mmol/l (95-108); GFR > 60 ML/MIN (>=60 (CALC)); GFR FOR AFR.AMER. > 60 ML/MIN (>=60 (CALC)); POTASSIUM 4.2 mmol/l (3.5-5.1); SGOT/AST 20 u/l (19-48); SODIUM 133 mmol/l (137-146); TOTAL PROTEIN 6.8 g/dL (6.3-8.2)
[2019-12-13] MEDS ORDERED: FLONASE SE27.5 MCG/S (21:23)
--- NOTE | 2019-12-13 22:30 | NUR ---
PT RESTING. LOU DRAINING LIGHT YODER COLOR. RETURNED FROM CT. LIGHTS DIMMED. NAD.
--- NOTE | 2019-12-13 22:45 | NUR ---
URINE IS NOW CLEAR. 500 CC IN BAG.
--- NOTE | 2019-12-13 22:45 | NUR ---
PT GIVEN CUP OF ORANGE JUICE. WATCHING TV. NAD. BLOOD CULTURES DRAWN X 2
--- NOTE | 2019-12-13 23:23 | NUR ---
AT BEDSIDE TO DISCUSS POC
--- NOTE | 2019-12-13 23:37 | NUR ---
FAMILY CALLED...SAID THEY ARE IN BED AND IT'S RAINING SO THEY CAN'T COME GET HIM TIL MORNING.
--- NOTE | 2019-12-14 | NUR ---
DR ADMITTED PT. PT NOTIFIED OF ADMISSION. C/O STRETCHER BEING UNCOFORTABLE.
--- NOTE | 2019-12-14 00:36 | NUR ---
REPORT TO JESSICA/[facility]
--- NOTE | 2019-12-14 00:55 | NUR ---
TO FLOOR VIA STRETCHER WITH MASK FOR COVID PRECAUTIONS. LOU EMPTIED FOR 1200 CC OF LIGHT YODER URINE....NOW DRAINING CLEAR YELLOW. IVF INFUSING DURING TRANSPORT. PT AMBULATORY TO STRETCHER WITH ASSIST.
[2019-12-14 01:08] VITALS: BP 135/86
--- NOTE | 2019-12-14 01:25 | NUR ---
[id number]- PT. ARRIVED TO THE FLOOR VIA STRETCHER ACCOMPANIED BY ER NURSE, LISA DOWELL. PT. ABLE TO AMBULATE TO BED WITH STEADY GAIT. ORIENTED TO ROOM, CALL LIGHT, AND POC; VERBALIZES UNDERSTANDING. IV SITE PATENT TO RAC AND ORDERED IVF INFUSING WELL. PT. REPORTS STRAIGHT CATHING HIMSELF ON SATURDAY AFTER NO URINATION HAPPENED AND REPORTS USING IT WITHOUT LUBIRICATION AND PRIOR TO THIS CATH HE HAD NOT DONE SO IN A YEAR. HE REPORTS HE HAS SEEN DR. BONNER A FEW YEARS AGO, BUT HAS NOT SEEN HIM SINCE. PT. ALSO REPORTS HAVING BLOODY URINE SATURDAY AT HOME AND IS HIS REASIN FOR COMING INTO THE ER. LOU CATHTER IN PLACE AND DRAINING DARK YELLOW URINE WITH SEDIMENTS NOTED. PT. PROVIDED WITH FOOD AND A DRINK PER HIS REQUEST. DENIES FURTHER NEEDS. CALL LIGHT IS IN REACH. WILL CONTINUE TO MONITOR.
--- NOTE | 2019-12-14 01:34 | NUR ---
TO FLOOR VIA STRETCHER WITH MASK FOR COVID PRECAUTIONS. LOU EMPTIED FOR 1200 CC OF YODER URINE. LOU NOW DRAINING LIGHT YELLOW URINE. IVF INFUSING AT 150/HOUR. PT A/O. NAD.
[2019-12-14 04:04] VITALS: BP 146/83
--- NOTE | 2019-12-14 04:26 | NUR ---
PT. C/O CHRONIC BACK PAIN; NOTIFIED DR. MCGILL AND NEW ORDERS RECEIVED AND TO BE CARRIED OUT.
--- NOTE | 2019-12-14 04:40 | NUR ---
PT. MEDICATED WITH ONR TIME DOSE OF MORPHINE FOR BACK PAIN; WILL REASSESS.
[2019-12-14 04:58] LABS: HEMATOCRIT 47.8 % (39.0-50.0); HEMOGLOBIN 14.7 g/dl (14.0-18.0); IMMATURE GRANULOCYTES 0.2 % (0.0-5.0); MEAN CELL VOLUME 91.9 fL CALC (80.0-100.0); MEAN CORPUSCULAR HGB 28.3 pG CALC (26.0-32.0); MEAN CORPUSCULAR HGB CONC 30.8 g/dL CAL (32.0-36.0); NEUT# 6.85 thou/uL (1.82-7.42); RED BLOOD COUNT 5.2 mill/uL (4.70-6.10); RED CELL DISTRI WIDTH 14.7 % (11.5-15.5)
[2019-12-14 05:14] LABS: ALBUMIN 3.9 g/dL (3.2-5.0); ALKALINE PHOSPHATASE 90 u/l (38-126); ANION GAP 13 (6-22 (CALC)); BILIRUBIN, TOTAL 0.4 mg/dL (0.0-1.4); BUN 23 mg/dL (8-23); BUN/CREATININE RATIO 22 (12-20 (CALC)); CARBON DIOXIDE 29 mmol/l (22-30); CHLORIDE 99 mmol/l (95-108); GFR > 60 ML/MIN (>=60 (CALC)); GFR FOR AFR.AMER. > 60 ML/MIN (>=60 (CALC)); POTASSIUM 4.3 mmol/l (3.5-5.1); SGOT/AST 19 u/l (19-48); SODIUM 137 mmol/l (137-146); TOTAL PROTEIN 6.6 g/dL (6.3-8.2)
--- NOTE | 2019-12-14 08:39 | NUR ---
DR MCINTOSH AND WALTER AT BEDSIDE DISCUSSING POC
[2019-12-14 09:07] VITALS: BP 118/73
--- NOTE | 2019-12-14 09:07 | NUR ---
PT SITTING IN BED. A&O X3. NO DISTRESS NOTED. LOU CATH DRAINING VIA GRAVITY WITH CLEAR YELLOW URINE NOTED. PT REPORTS TO FEEL BETTER THIS MORNING. C/O OF SLIGHT BACK PAIN, STATES THIS IS CHRONIC PAIN. NO OTHER NEEDS AT THIS TIME. ASSESSMENT COMPLETED. DISCUSSED POC. CALL LIGHT IN REACH. CONTINUE TO MONITOR.
[2019-12-14] MEDS ORDERED: BACTRIM DS1 TAB PO (10:40)
--- NOTE | 2019-12-14 10:58 | NUR ---
LOU CATHETER REMOVED PER WALTER'S ORDERS. INSTRUCTED PT TO CALL AFTER POST LOU VOID. PT VERBALIZED UNDERSTANDING.
--- NOTE | 2019-12-14 12:18 | NUR ---
PT SITTING IN BED EATING LUNCH. NO NEEDS AT THIS TIME. CALL LIGHT IN REACH. CONTINUE TO MONITOR.
--- NOTE | 2019-12-14 14:06 | NUR ---
150 CC OF URINE NOTED IN URINAL POST LOU REMOVAL.
[2019-12-14 15:05] VITALS: BP 148/85
--- NOTE | 2019-12-14 15:30 | NUR ---
Discharge instructions given. Patient and verbalize understanding of same. Discharged in stable condition via wheelchair to home with pre admission home health agency . Pt instructed to return if unable to void or if symptoms worsen. All belongings sent with pt.
--- NOTE | 2019-12-15 17:36 | NUR ---
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 RN GAVE THIS CM THE PAPERWORK. CM FAXED OVER THE PAPER WORK. CALL TO TO MAKE HER AWARE. CM/RN CALLED [facility] TO CONFIRM RECEIPT OF FAX. PER FARZANA AT TRANSPORT, SHE NEEDS PHOTO ID. PT PLANNING DIRECTOR LICENSE AND FACE SHEET FAXED. PT H&P UPDATED ALONG WITH UPDATED MEDICATIONS. NO OTHER ISSUES AT THIS TIME.
[2019-12-22] MEDS ORDERED: CYMBALTA30 MG PO (16:30)
[2019-12-22] MEDS ORDERED: FULL SPECTRUM S1 CAP PO (16:31)
== END 2019-12-14 15:30 | disposition home health service (06) ==
LOC: ED 20:04 → ED-I 23:29 → ED 23:49 → MS2 23:50
PROVIDERS: Emergency Medicine; ADMIT Internal Medicine; ATTEND Internal Medicine
PROC: 0T9B70Z Drainage of Bladder with Drainage Device, Via Natural or Artificial Opening (ICD-10-PCS; principal; 2019-12-13)
DX: N39.0 Urinary tract infection, site not specified (principal); N40.1 Benign prostatic hyperplasia with lower urinary tract symptoms; R33.8 Other retention of urine; I10 Essential (primary) hypertension; E11.51 Type 2 diabetes mellitus with diabetic peripheral angiopathy without gangrene; J44.9 Chronic obstructive pulmonary disease, unspecified; I25.10 Atherosclerotic heart disease of native coronary artery without angina pectoris; I42.9 Cardiomyopathy, unspecified; G89.4 Chronic pain syndrome; F41.9 Anxiety disorder, unspecified; F32.9 Major depressive disorder, single episode, unspecified; E78.5 Hyperlipidemia, unspecified; F17.290 Nicotine dependence, other tobacco product, uncomplicated; Z79.84 Long term (current) use of oral hypoglycemic drugs; Z96.89 Presence of other specified functional implants; Z95.810 Presence of automatic (implantable) cardiac defibrillator; Z95.5 Presence of coronary angioplasty implant and graft; Z87.440 Personal history of urinary (tract) infections; Z20.828 Contact with and (suspected) exposure to other viral communicable diseases
CPT/HCPCS: G0378; Q9967

== ENCOUNTER 2021-10-29 10:01 | Emergency (ER) | payer MEDICARE, BC ==
[2021-10-29] VITALS (16 sets, daily range): BP systolic 100–164; BP diastolic 68–102
[~2021-10-29] VITALS: Ht 185.4 cm; Wt 94.1 kg
[~2021-10-29 10:01] MED LIST changes: +CYMBALTA30 MG PO; +FLONASE SE27.5 MCG/S; +FULL SPECTRUM S1 CAP PO; +PAIN PUMP
[2021-10-29] MEDS ORDERED: ALL DAY10 MG PO (10:16)
== END 2021-10-29 11:03 | disposition home or self-care (01) ==
LOC: ED 10:01
DX: L29.9 Pruritus, unspecified (principal); L03.031 Cellulitis of right toe; I10 Essential (primary) hypertension; E11.51 Type 2 diabetes mellitus with diabetic peripheral angiopathy without gangrene; J44.9 Chronic obstructive pulmonary disease, unspecified; I42.9 Cardiomyopathy, unspecified; I25.10 Atherosclerotic heart disease of native coronary artery without angina pectoris; F17.290 Nicotine dependence, other tobacco product, uncomplicated; Z95.5 Presence of coronary angioplasty implant and graft; Z95.820 Peripheral vascular angioplasty status with implants and grafts; Z95.810 Presence of automatic (implantable) cardiac defibrillator; Z95.828 Presence of other vascular implants and grafts

== ENCOUNTER 2021-11-29 09:00 | Observation (INO) | payer MEDICARE, BC ==
[~2021-11-29] VITALS: Ht 185.4 cm; Wt 100.0 kg
[2021-11-29] VITALS (20 sets, daily range): BP systolic 102–164; BP diastolic 58–91
[~2021-11-29 09:00] MED LIST changes: +ALL DAY10 MG PO
[2021-11-29 09:23] LABS: IMMATURE GRANULOCYTES 0.3 % (0.0-5.0); MEAN CELL VOLUME 90.9 fL CALC (80.0-100.0); MEAN CORPUSCULAR HGB 28.4 pG CALC (26.0-32.0); MEAN CORPUSCULAR HGB CONC 31.2 g/dL CAL (32.0-36.0); NEUT# 8.61 thou/uL (1.82-7.42); RED BLOOD COUNT 4.62 mill/uL (4.70-6.10); RED CELL DISTRI WIDTH 16.1 % (11.5-15.5)
[2021-11-29 09:24] LABS: HEMOGLOBIN 13.1 g/dl (14.0-18.0)
[2021-11-29] MEDS ORDERED: METFORMIN HCL1000 MG PO (09:31)
[2021-11-29] MEDS ORDERED: PLAVIX75 MG PO (09:31)
[2021-11-29] MEDS ORDERED: FINASTERIDE5 MG PO (09:33)
[2021-11-29] MEDS ORDERED: NIACIN500 M2 PO (09:33)
[2021-11-29] MEDS ORDERED: GABAPENTIN300 M2 PO (09:33)
[2021-11-29] MEDS ORDERED: TAMSULOSIN HCL0.4 MG PO (09:34)
[2021-11-29 10:36] LABS: ALKALINE PHOSPHATASE 106 u/l (38-126); ANION GAP 11 (6-22 (CALC)); BILIRUBIN, TOTAL 0.6 mg/dL (0.0-1.4); BUN 15 mg/dL (8-23); BUN/CREATININE RATIO 18 (12-20 (CALC)); CARBON DIOXIDE 33 mmol/l (22-30); CHLORIDE 97 mmol/l (95-108); CREATININE 0.9 mg/dL (0.7-1.3); GFR FOR AFR.AMER. > 60 ML/MIN (>=60 (CALC)); GFR OTHER RACES > 60 ML/MIN (>=60 (CALC)); POTASSIUM 4.3 mmol/l (3.5-5.1); SGOT/AST 17 u/l (19-48); SODIUM 137 mmol/l (137-146); TOTAL PROTEIN 6.9 g/dL (6.3-8.2)
[2021-11-29] MEDS ORDERED: NORVASC PO (11:29)
[2021-11-29] MEDS ORDERED: LASIX20 MG PO (11:30)
[2021-11-29] MEDS ORDERED: ALDACTONE25 MG PO (11:30)
[2021-11-29] MEDS ORDERED: FARXIGA5 MG PO (11:30)
[2021-11-29] MEDS ORDERED: ASPIRIN81 MG PO (11:31)
[2021-11-29] MEDS ORDERED: LIPITOR40 M1 PO (11:34)
[2021-11-29] MEDS ORDERED: FISH OIL1000 MG PO (11:35)
[2021-11-29] MEDS ORDERED: KEFLEX500 MG PO (13:29)
[2021-11-29] MEDS ORDERED: TRAZODONE50 MG PO (13:31)
[2021-11-29] MEDS ORDERED: ENTRESTO 24-261 TAB PO (13:33)
[2021-11-29] MEDS ORDERED: DULOXETINE HCL60 MG PO (13:35)
[2021-11-29] MEDS ORDERED: BREZTRI AEROSPH1 AER IN (13:37)
[2021-11-30] VITALS (7 sets, daily range): BP systolic 100–154; BP diastolic 61–84
[2021-11-30 06:37] LABS: MAGNESIUM 2.2 mg/dL (1.6-2.3)
[2021-11-30 06:42] LABS: CHOLESTEROL HDL RATIO 1.8 (<4.4 (CALC))
[2021-11-30 10:38] LABS: HEMATOCRIT 43.7 % (39.0-50.0); HEMOGLOBIN 13.6 g/dl (14.0-18.0); IMMATURE GRANULOCYTES 0.3 % (0.0-5.0); MEAN CELL VOLUME 91.4 fL CALC (80.0-100.0); MEAN CORPUSCULAR HGB 28.5 pG CALC (26.0-32.0); MEAN CORPUSCULAR HGB CONC 31.1 g/dL CAL (32.0-36.0); NEUT# 8.28 thou/uL (1.82-7.42); RED BLOOD COUNT 4.78 mill/uL (4.70-6.10); RED CELL DISTRI WIDTH 16.2 % (11.5-15.5)
[2021-12-01 04:53] VITALS: BP 127/77
[2021-12-01 06:24] LABS: HEMATOCRIT 42.6 % (39.0-50.0); HEMOGLOBIN 13.5 g/dl (14.0-18.0); IMMATURE GRANULOCYTES 0.6 % (0.0-5.0); MEAN CELL VOLUME 88.9 fL CALC (80.0-100.0); MEAN CORPUSCULAR HGB 28.2 pG CALC (26.0-32.0); MEAN CORPUSCULAR HGB CONC 31.7 g/dL CAL (32.0-36.0); NEUT# 11.57 thou/uL (1.82-7.42); RED BLOOD COUNT 4.79 mill/uL (4.70-6.10); RED CELL DISTRI WIDTH 15.8 % (11.5-15.5)
[2021-12-01 06:27] VITALS: BP 122/92
[2021-12-01 06:58] LABS: ALBUMIN 3.5 g/dL (3.2-5.0); ALKALINE PHOSPHATASE 87 u/l (38-126); ANION GAP 11 (6-22 (CALC)); BILIRUBIN, TOTAL 0.4 mg/dL (0.0-1.4); BUN 31 mg/dL (8-23); BUN/CREATININE RATIO 33 (12-20 (CALC)); CARBON DIOXIDE 31 mmol/l (22-30); CHLORIDE 98 mmol/l (95-108); CREATININE 0.9 mg/dL (0.7-1.3); GFR FOR AFR.AMER. > 60 ML/MIN (>=60 (CALC)); GFR OTHER RACES > 60 ML/MIN (>=60 (CALC)); MAGNESIUM 2.2 mg/dL (1.6-2.3); POTASSIUM 4.8 mmol/l (3.5-5.1); SGOT/AST 13 u/l (19-48); SODIUM 135 mmol/l (137-146); TOTAL PROTEIN 6.1 g/dL (6.3-8.2)
[2021-12-01 09:25] LABS: URINE BILIRUBIN - DIPSTICK NEGATIVE (NEGATIVE); URINE BLOOD DIPSTICK NEGATIVE (NEGATIVE); URINE COLOR YELLOW; URINE GLUCOSE - DIPSTICK 500 mg/dL (NEGATIVE); URINE KETONE TRACE mg/dL (NEGATIVE); URINE LEUK ESTERASE NEGATIVE (NEGATIVE); URINE PROTEIN - DIPSTICK NEGATIVE (NEG-TRACE); URINE UROBILINOGEN - DIPSTICK 0.2 E.U./dL (0.2)
[2021-12-01 09:30] LABS: URINE NITRITE - DIPSTICK NEGATIVE (Negative)
[2021-12-01 10:01] VITALS: BP 140/84
[2021-12-01] MEDS ORDERED: MEDDOSEPAK PO (12:19)
[2021-12-01] MEDS ORDERED: ZITHROMAX250 MG PO (12:19)
== END 2021-12-01 14:14 | disposition home health service (06) ==
LOC: ED 09:00 → ED-I 12:00 → MS2 12:30 → ED 12:30 → MS2 12:30
PROVIDERS: Family Medicine; Nurse Practitioner; ADMIT Internal Medicine; ATTEND Internal Medicine
DX: I11.0 Hypertensive heart disease with heart failure (principal); I50.9 Heart failure, unspecified; M25.561 Pain in right knee; M25.461 Effusion, right knee; M25.551 Pain in right hip; S81.801A Unspecified open wound, right lower leg, initial encounter; L03.115 Cellulitis of right lower limb; J44.1 Chronic obstructive pulmonary disease with (acute) exacerbation; R09.02 Hypoxemia; E11.51 Type 2 diabetes mellitus with diabetic peripheral angiopathy without gangrene; I25.10 Atherosclerotic heart disease of native coronary artery without angina pectoris; R00.8 Other abnormalities of heart beat; M54.50 Low back pain, unspecified; G89.29 Other chronic pain; N40.0 Benign prostatic hyperplasia without lower urinary tract symptoms; E78.5 Hyperlipidemia, unspecified; F41.9 Anxiety disorder, unspecified; F32.A Depression, unspecified; F17.290 Nicotine dependence, other tobacco product, uncomplicated; S40.022A Contusion of left upper arm, initial encounter; S40.021A Contusion of right upper arm, initial encounter; S80.12XA Contusion of left lower leg, initial encounter; S80.11XA Contusion of right lower leg, initial encounter; W18.39XA Other fall on same level, initial encounter; Y92.009 Unspecified place in unspecified non-institutional (private) residence as the place of occurrence of the external cause; Z79.02 Long term (current) use of antithrombotics/antiplatelets; Z95.810 Presence of automatic (implantable) cardiac defibrillator; Z96.89 Presence of other specified functional implants; Z95.5 Presence of coronary angioplasty implant and graft; Z79.84 Long term (current) use of oral hypoglycemic drugs; Z20.822 Contact with and (suspected) exposure to COVID-19
CPT/HCPCS: G0378

== ENCOUNTER 2023-09-09 10:43 | Emergency (ER) | payer MEDICARE, BC ==
[2023-09-09] VITALS (28 sets, daily range): BP systolic 105–164; BP diastolic 66–141
[~2023-09-09] VITALS: Ht 188 cm; Wt 81.0 kg
[~2023-09-09 10:43] MED LIST changes: +AMOX/K CLAV875 M1 PO; +ASPIRIN81 MG PO; +BREZTRI AEROSPH1 AER IN; +CETIRIZINE10 MG PO; +DOXY-CAPS100 MG PO; +DULOXETINE HCL60 MG PO; +KEFLEX500 MG PO; +LIPITOR40 M1 PO; +NIACIN500 M2 PO; +NORVASC PO; +OMNICEF300 M1 PO; +PLAVIX75 MG PO; +TRAZODONE50 MG PO
[2023-09-09 11:44] LABS: BASO% 0.3 % (0-3); EOS% 1.5 % (0-8); HEMATOCRIT 40.9 % (39.0-50.0); HEMOGLOBIN 12.4 g/dl (14.0-18.0); IMMATURE GRANULOCYTES 0.2 % (0.0-5.0); LYMPH% 15.7 % (15-41); MEAN CELL VOLUME 97.4 fL CALC (80.0-100.0); MEAN CORPUSCULAR HGB 29.5 pG CALC (26.0-32.0); MEAN CORPUSCULAR HGB CONC 30.3 g/dL CAL (32.0-36.0); NEUT# 4.94 thou/uL (1.82-7.42); NEUT% 74.3 % (42-76); RED BLOOD COUNT 4.2 mill/uL (4.70-6.10); RED CELL DISTRI WIDTH 15.9 % (11.5-15.5)
[2023-09-09 11:57] LABS: ALBUMIN 3.7 g/dL (3.2-5.0); BILIRUBIN, TOTAL 0.6 mg/dL (0.2-1.3); CREATININE 0.9 mg/dL (0.7-1.3); POTASSIUM 4.1 mmol/l (3.5-5.1)
[2023-09-09] MEDS ORDERED: DULCOLAX10 MG RE (13:58)
[2023-09-09] MEDS ORDERED: CITRATE OF MEGNESIA PO (13:58)
[2023-09-09] MEDS ORDERED: ORPHENADRINE CITRATE 30 MG/ML AMP IM ONE (18:25)
== END 2023-09-09 18:52 | disposition home or self-care (01) ==
LOC: ED 10:43
PROVIDERS: Family Medicine
DX: K56.41 Fecal impaction (principal); E11.22 Type 2 diabetes mellitus with diabetic chronic kidney disease; I13.0 Hypertensive heart and chronic kidney disease with heart failure and stage 1 through stage 4 chronic kidney disease, or unspecified chronic kidney disease; N18.9 Chronic kidney disease, unspecified; I50.9 Heart failure, unspecified; J44.9 Chronic obstructive pulmonary disease, unspecified; E11.51 Type 2 diabetes mellitus with diabetic peripheral angiopathy without gangrene; F32.A Depression, unspecified; F41.9 Anxiety disorder, unspecified; Z95.820 Peripheral vascular angioplasty status with implants and grafts; Z96.89 Presence of other specified functional implants; Z95.810 Presence of automatic (implantable) cardiac defibrillator; Z79.84 Long term (current) use of oral hypoglycemic drugs; Z20.822 Contact with and (suspected) exposure to COVID-19
CPT/HCPCS: Q9967

== ENCOUNTER 2023-09-30 12:56 | Emergency (ER) | payer MEDICARE, BC ==
[~2023-09-30] VITALS: Ht 188 cm; Wt 85.0 kg
[2023-09-30] VITALS (11 sets, daily range): BP systolic 115–140; BP diastolic 67–92
[~2023-09-30 12:56] MED LIST changes: +CITRATE OF MEGNESIA PO; +DULCOLAX10 MG RE
[2023-09-30] MEDS ORDERED: Diph, Acellular Pertussis, Tet 0.5 ML/VIAL (Tdap) SDV IM ONE (13:00)
[2023-09-30 13:40] LABS: BASO% 0.3 % (0-3); EOS% 3.3 % (0-8); HEMATOCRIT 39.3 % (39.0-50.0); HEMOGLOBIN 11.3 g/dl (14.0-18.0); IMMATURE GRANULOCYTES 0.2 % (0.0-5.0); LYMPH% 14.6 % (15-41); MEAN CELL VOLUME 96.3 fL CALC (80.0-100.0); MEAN CORPUSCULAR HGB 27.7 pG CALC (26.0-32.0); MEAN CORPUSCULAR HGB CONC 28.8 g/dL CAL (32.0-36.0); MONO% 8.3 % (2-13); NEUT# 4.23 thou/uL (1.82-7.42); NEUT% 73.3 % (42-76); RED BLOOD COUNT 4.08 mill/uL (4.70-6.10); RED CELL DISTRI WIDTH 16.4 % (11.5-15.5)
[2023-09-30 13:52] LABS: ALBUMIN 3.6 g/dL (3.2-5.0); BILIRUBIN, TOTAL 0.5 mg/dL (0.2-1.3); CREATININE 0.8 mg/dL (0.7-1.3); POTASSIUM 4.4 mmol/l (3.5-5.1); TOTAL PROTEIN 6.9 g/dL (6.3-8.2)
== END 2023-09-30 15:10 | disposition home or self-care (01) ==
LOC: ED 12:56
PROVIDERS: Family Medicine
DX: S00.93XA Contusion of unspecified part of head, initial encounter (principal); S40.212A Abrasion of left shoulder, initial encounter; S51.812A Laceration without foreign body of left forearm, initial encounter; I50.9 Heart failure, unspecified; E11.51 Type 2 diabetes mellitus with diabetic peripheral angiopathy without gangrene; E11.22 Type 2 diabetes mellitus with diabetic chronic kidney disease; N18.9 Chronic kidney disease, unspecified; J44.9 Chronic obstructive pulmonary disease, unspecified; F32.A Depression, unspecified; F41.9 Anxiety disorder, unspecified; N40.0 Benign prostatic hyperplasia without lower urinary tract symptoms; F17.200 Nicotine dependence, unspecified, uncomplicated; W06.XXXA Fall from bed, initial encounter; Y92.003 Bedroom of unspecified non-institutional (private) residence as the place of occurrence of the external cause; Z95.820 Peripheral vascular angioplasty status with implants and grafts; Z95.810 Presence of automatic (implantable) cardiac defibrillator; Z79.84 Long term (current) use of oral hypoglycemic drugs; Z96.89 Presence of other specified functional implants; Z95.5 Presence of coronary angioplasty implant and graft

== ENCOUNTER 2023-10-08 00:49 | Emergency (ER) | payer MEDICARE, BC ==
[~2023-10-08] VITALS: Ht 188 cm; Wt 98.0 kg
[2023-10-08] MEDS ORDERED: traMADol HCL 50 MG/TAB PO ONE (01:00)
[2023-10-08] MEDS ORDERED: KETOROLAC TROMETHAMINE 30 MG/ML SDV IM ONE (01:00)
[2023-10-08] MEDS ORDERED: ACETAMINOPHEN 500 MG TAB PO ONE (01:00)
[2023-10-08] MEDS ORDERED: KETOROLAC TROMETHAMINE 30 MG/ML SDV IV ONE (01:30)
[2023-10-08] MEDS ORDERED: PERCOGESI1 PO (04:54)
[2023-10-08] MEDS ORDERED: Acetaminophen 300 MG/Codeine 30 MG/COMBO PO ONE (05:20)
[2023-10-08] MEDS ORDERED: IBUPROFEN 800 MG/TAB PO ONE (05:20)
[2023-10-08 11:16] VITALS: BP 140/80
== END 2023-10-08 11:30 | disposition home or self-care (01) ==
LOC: ED 00:49
DX: M54.50 Low back pain, unspecified (principal); G89.29 Other chronic pain; E11.22 Type 2 diabetes mellitus with diabetic chronic kidney disease; N18.9 Chronic kidney disease, unspecified; E11.51 Type 2 diabetes mellitus with diabetic peripheral angiopathy without gangrene; I50.9 Heart failure, unspecified; J44.9 Chronic obstructive pulmonary disease, unspecified; F32.A Depression, unspecified; F41.9 Anxiety disorder, unspecified; F17.200 Nicotine dependence, unspecified, uncomplicated; Z95.810 Presence of automatic (implantable) cardiac defibrillator; Z95.5 Presence of coronary angioplasty implant and graft; Z95.820 Peripheral vascular angioplasty status with implants and grafts; Z79.84 Long term (current) use of oral hypoglycemic drugs

== ENCOUNTER 2023-10-15 16:58 | Emergency (ER) | payer MEDICARE, BC ==
[~2023-10-15] VITALS: Ht 190.5 cm; Wt 84.8 kg
[2023-10-15] VITALS (25 sets, daily range): BP systolic 119–154; BP diastolic 51–92
[~2023-10-15 16:58] MED LIST changes: +PERCOGESI1 PO
[2023-10-15] MEDS ORDERED: ONDANSETRON HCl 4 MG/2 ML SDV IV ONE (17:10)
[2023-10-15] MEDS ORDERED: MORPHINE SULFATE 4 MG/ML VIAL IV ONE (17:10)
[2023-10-15 17:49] LABS: BASO% 0.6 % (0-3); EOS% 1.5 % (0-8); HEMATOCRIT 39.7 % (39.0-50.0); HEMOGLOBIN 11.5 g/dl (14.0-18.0); IMMATURE GRANULOCYTES 0.7 % (0.0-5.0); LYMPH% 12.6 % (15-41); MEAN CELL VOLUME 93.2 fL CALC (80.0-100.0); MONO% 6.5 % (2-13); NEUT# 5.62 thou/uL (1.82-7.42); NEUT% 78.1 % (42-76); RED BLOOD COUNT 4.26 mill/uL (4.70-6.10); RED CELL DISTRI WIDTH 16.9 % (11.5-15.5)
[2023-10-15 17:54] LABS: ALBUMIN 3.8 g/dL (3.2-5.0); CREATININE 0.7 mg/dL (0.7-1.3); TOTAL PROTEIN 7.1 g/dL (6.3-8.2)
[2023-10-15 17:55] LABS: BILIRUBIN, TOTAL 1.2 mg/dL (0.2-1.3)
[2023-10-15] MEDS ORDERED: FUROSEMIDE 40 MG/4 ML SDV IV ONE (19:20)
[2023-10-15 21:00] LABS: URINE BILIRUBIN - DIPSTICK Negative (NEGATIVE); URINE BLOOD DIPSTICK Negative (NEGATIVE); URINE GLUCOSE - DIPSTICK >=1000 mg/dL (NEGATIVE); URINE KETONE Trace mg/dL (NEGATIVE); URINE LEUK ESTERASE Trace (NEGATIVE); URINE NITRITE - DIPSTICK Negative (Negative); URINE PROTEIN - DIPSTICK 30 mg/dL (NEG-TRACE); URINE SPECIFIC GRAVITY 1.015
[2023-10-15 21:01] LABS: URINE COLOR Yellow
[2023-10-15 21:03] LABS: URINE RBC 0-2 RBC/hpf (0-5)
[2023-10-15] MEDS ORDERED: oxyCODONE 5MG/ ACETAMINOPHEN 325MG TAB PO ONE (21:50)
[2023-10-16] VITALS (10 sets, daily range): BP systolic 127–163; BP diastolic 71–99
[2023-10-16] MEDS ORDERED: oxyCODONE HCL ER 10 MG/TAB PO ONE (00:45)
== END 2023-10-16 02:35 | disposition home or self-care (01) ==
LOC: ED 16:58
PROVIDERS: Family Medicine
DX: M54.50 Low back pain, unspecified (principal); G89.29 Other chronic pain; I13.0 Hypertensive heart and chronic kidney disease with heart failure and stage 1 through stage 4 chronic kidney disease, or unspecified chronic kidney disease; E11.22 Type 2 diabetes mellitus with diabetic chronic kidney disease; N18.9 Chronic kidney disease, unspecified; I50.9 Heart failure, unspecified; J44.9 Chronic obstructive pulmonary disease, unspecified; N40.0 Benign prostatic hyperplasia without lower urinary tract symptoms; E11.51 Type 2 diabetes mellitus with diabetic peripheral angiopathy without gangrene; I25.2 Old myocardial infarction; F41.9 Anxiety disorder, unspecified; F32.A Depression, unspecified; Z95.810 Presence of automatic (implantable) cardiac defibrillator; Z99.81 Dependence on supplemental oxygen; Z96.89 Presence of other specified functional implants; Z79.84 Long term (current) use of oral hypoglycemic drugs; Z91.81 History of falling; Z20.822 Contact with and (suspected) exposure to COVID-19

== ENCOUNTER 2023-10-22 00:06 | Emergency (ER) | payer MEDICARE, BC ==
[~2023-10-22] VITALS: Ht 190.5 cm; Wt 80.0 kg
[2023-10-22] VITALS (16 sets, daily range): BP systolic 124–165; BP diastolic 73–105
[2023-10-22] MEDS ORDERED: SODIUM CHLORIDE 0.9% 1,000 ML IV ONE (00:55)
[2023-10-22] MEDS ORDERED: HYDROmorphone HCL 2 MG/AMP IV ONE (01:00)
[2023-10-23] MEDS ORDERED: CYMBALTA60 MG PO (16:46)
[2023-10-23] MEDS ORDERED: ABILIFY10 MG PO (16:49)
== END 2023-10-22 04:45 | disposition home or self-care (01) ==
LOC: ED 00:06
DX: M54.50 Low back pain, unspecified (principal); G89.29 Other chronic pain; E11.22 Type 2 diabetes mellitus with diabetic chronic kidney disease; N18.9 Chronic kidney disease, unspecified; I73.9 Peripheral vascular disease, unspecified; I50.9 Heart failure, unspecified; N40.0 Benign prostatic hyperplasia without lower urinary tract symptoms; J44.9 Chronic obstructive pulmonary disease, unspecified; F41.9 Anxiety disorder, unspecified; F32.A Depression, unspecified; F17.200 Nicotine dependence, unspecified, uncomplicated; Z95.5 Presence of coronary angioplasty implant and graft; Z95.820 Peripheral vascular angioplasty status with implants and grafts; Z96.89 Presence of other specified functional implants; Z95.810 Presence of automatic (implantable) cardiac defibrillator; Z79.84 Long term (current) use of oral hypoglycemic drugs; Z79.891 Long term (current) use of opiate analgesic

== ENCOUNTER 2023-10-22 16:34 | Observation (INO) | payer MEDICARE, BC ==
[2023-10-22] VITALS (31 sets, daily range): BP systolic 120–164; BP diastolic 60–128
[~2023-10-22] VITALS: Ht 190.5 cm; Wt 85.7 kg
[2023-10-22] MEDS ORDERED: HYDROmorphone HCL 2 MG/AMP IV ONE ×2 (16:55→21:25)
[2023-10-22] MEDS ORDERED: KETOROLAC TROMETHAMINE 15 MG/ML SDV IV ONE (16:55)
[2023-10-22] MEDS ORDERED: DEXAMETHASONE SOD. PHOSPHATE 10 MG/ML VIAL IV ONE (16:55)
[2023-10-22 17:14] LABS: BASO% 0.2 % (0-3); EOS% 0.3 % (0-8); HEMATOCRIT 38.3 % (39.0-50.0); HEMOGLOBIN 11.5 g/dl (14.0-18.0); IMMATURE GRANULOCYTES 0.2 % (0.0-5.0); LYMPH% 9.7 % (15-41); MEAN CELL VOLUME 91.2 fL CALC (80.0-100.0); MEAN CORPUSCULAR HGB 27.4 pG CALC (26.0-32.0); MONO% 6.4 % (2-13); NEUT# 7.15 thou/uL (1.82-7.42); NEUT% 83.2 % (42-76); RED BLOOD COUNT 4.2 mill/uL (4.70-6.10); RED CELL DISTRI WIDTH 17.5 % (11.5-15.5)
[2023-10-22 17:32] LABS: ALBUMIN 3.9 g/dL (3.2-5.0); BILIRUBIN, TOTAL 1.2 mg/dL (0.2-1.3); CREATININE 0.9 mg/dL (0.7-1.3); TOTAL PROTEIN 7.1 g/dL (6.3-8.2)
[2023-10-22 19:38] LABS: URINE BLOOD DIPSTICK Negative (NEGATIVE); URINE GLUCOSE - DIPSTICK 250 mg/dL (NEGATIVE); URINE KETONE Trace mg/dL (NEGATIVE); URINE LEUK ESTERASE Negative (NEGATIVE); URINE NITRITE - DIPSTICK Negative (Negative); URINE PROTEIN - DIPSTICK 100 mg/dL (NEG-TRACE); URINE SPECIFIC GRAVITY >=1.030
[2023-10-22 19:40] LABS: URINE COLOR Dark yellow
[2023-10-22 19:54] LABS: URINE RBC 0-2 RBC/hpf (0-5); URINE WBC 0-2 WBC/hpf (0-5)
[2023-10-22] MEDS ORDERED: DOXYCYCLINE HYCLATE 100 MG in SODIUM CHLORIDE 0.9% 100 ML IV ONE (20:05)
[2023-10-22] MEDS ORDERED: ACETAMINOPHEN 325 MG/TAB PO PRN ×2 (21:20→22:15)
[2023-10-22] MEDS ORDERED: SODIUM CHLORIDE 0.9% 1,000 ML IV PRN (21:20)
[2023-10-22] MEDS ORDERED: MAGNESIUM HYDROXIDE 30 ML UDC PO PRN ×2 (21:20→22:15)
[2023-10-22] MEDS ORDERED: Zaleplon 5 MG/CAP PO PRN (22:15)
[2023-10-22] MEDS ORDERED: HYDROmorphone HCL 2 MG/AMP IV PRN (22:20)
[2023-10-23] VITALS (7 sets, daily range): BP systolic 122–152; BP diastolic 78–93
[2023-10-23 06:01] LABS: CHOLESTEROL HDL RATIO 1.6 (<4.4 (CALC)); MAGNESIUM 1.9 mg/dL (1.6-2.3)
[2023-10-23] MEDS ORDERED: amLODIPine BESYLATE 5 MG/TAB PO SCH (09:00)
[2023-10-23] MEDS ORDERED: TAMSULOSIN HCL 0.4 MG CAP PO SCH (09:00)
[2023-10-23] MEDS ORDERED: FUROSEMIDE 20 MG/TAB PO SCH (09:00)
[2023-10-23] MEDS ORDERED: GABAPENTIN 300 MG/CAP PO SCH (09:00)
[2023-10-23] MEDS ORDERED: CLOPIDOGREL BISULFATE 75 MG/TAB TAB PO SCH (09:00)
[2023-10-23] MEDS ORDERED: ASPIRIN 81 MG/TAB PO SCH (09:00)
[2023-10-23] MEDS ORDERED: ATORVASTATIN CALCIUM 40 MG/TAB PO SCH (09:00)
[2023-10-23] MEDS ORDERED: AZITHROMYCIN 500 MG in SODIUM CHLORIDE 0.9% 250 ML IV SCH (09:00)
[2023-10-23] MEDS ORDERED: predniSONE 20 MG/TAB PO SCH ×2 (09:30→21:00)
[2023-10-23] MEDS ORDERED: oxyCODONE 10MG/APAP 325 MG 1 COMBO TAB PO PRN (10:00)
[2023-10-23] MEDS ORDERED: DEXTROSE 250 ML IV PRN (10:00)
[2023-10-23] MEDS ORDERED: INSULIN LISPRO 100 UNITS/ML ML SC SCH (11:00)
[2023-10-23] MEDS ORDERED: CYMBALTA60 MG PO (16:46)
[2023-10-23] MEDS ORDERED: ABILIFY10 MG PO (16:49)
[2023-10-23] MEDS ORDERED: ENOXAPARIN SODIUM 40 MG/0.4 ML SYR SC SCH (21:00)
[2023-10-24] VITALS (7 sets, daily range): BP systolic 110–142; BP diastolic 72–93
[2023-10-24 04:53] LABS: BASO% 0.1 % (0-3); HEMATOCRIT 43.2 % (39.0-50.0); HEMOGLOBIN 12.6 g/dl (14.0-18.0); IMMATURE GRANULOCYTES 0.3 % (0.0-5.0); LYMPH% 5.4 % (15-41); MEAN CELL VOLUME 92.3 fL CALC (80.0-100.0); MEAN CORPUSCULAR HGB 26.9 pG CALC (26.0-32.0); MEAN CORPUSCULAR HGB CONC 29.2 g/dL CAL (32.0-36.0); MONO% 2.5 % (2-13); NEUT# 9.38 thou/uL (1.82-7.42); NEUT% 91.7 % (42-76); RED BLOOD COUNT 4.68 mill/uL (4.70-6.10); RED CELL DISTRI WIDTH 17.5 % (11.5-15.5)
[2023-10-24 05:16] LABS: ALBUMIN 3.9 g/dL (3.2-5.0); POTASSIUM 4.4 mmol/l (3.5-5.1); TOTAL PROTEIN 7.1 g/dL (6.3-8.2)
[2023-10-24 05:23] LABS: BILIRUBIN, TOTAL 0.7 mg/dL (0.2-1.3)
[2023-10-24] MEDS ORDERED: DOXYCYCLINE100 MG PO (09:46)
== END 2023-10-24 14:53 ==
LOC: ED 16:34 → ED-I 19:30 → ED 21:20 → MS2 21:21
PROVIDERS: Nurse Practitioner; Nurse Practitioner Family; ADMIT Internal Medicine; ATTEND Internal Medicine
DX: G89.29 Other chronic pain (principal); M54.50 Low back pain, unspecified; J18.9 Pneumonia, unspecified organism; J44.0 Chronic obstructive pulmonary disease with (acute) lower respiratory infection; M54.16 Radiculopathy, lumbar region; I87.2 Venous insufficiency (chronic) (peripheral); L97.829 Non-pressure chronic ulcer of other part of left lower leg with unspecified severity; L97.819 Non-pressure chronic ulcer of other part of right lower leg with unspecified severity; R79.89 Other specified abnormal findings of blood chemistry; I13.0 Hypertensive heart and chronic kidney disease with heart failure and stage 1 through stage 4 chronic kidney disease, or unspecified chronic kidney disease; I50.9 Heart failure, unspecified; E11.22 Type 2 diabetes mellitus with diabetic chronic kidney disease; N18.9 Chronic kidney disease, unspecified; E11.51 Type 2 diabetes mellitus with diabetic peripheral angiopathy without gangrene; I25.10 Atherosclerotic heart disease of native coronary artery without angina pectoris; F41.9 Anxiety disorder, unspecified; F32.A Depression, unspecified; F17.200 Nicotine dependence, unspecified, uncomplicated; Z76.5 Malingerer [conscious simulation]; Z79.891 Long term (current) use of opiate analgesic; Z95.810 Presence of automatic (implantable) cardiac defibrillator; Z96.89 Presence of other specified functional implants; Z79.84 Long term (current) use of oral hypoglycemic drugs; Z99.81 Dependence on supplemental oxygen; Z95.820 Peripheral vascular angioplasty status with implants and grafts
CPT/HCPCS: J1650

== ENCOUNTER 2023-11-10 10:35 | Inpatient (IN) | payer MEDICARE, BC ==
[2023-11-10] VITALS (21 sets, daily range): BP systolic 102–134; BP diastolic 59–91
[~2023-11-10] VITALS: Ht 190.5 cm; Wt 78.6 kg
[~2023-11-10 10:35] MED LIST changes: +ABILIFY10 MG PO; +CYMBALTA60 MG PO; +DOXYCYCLINE100 MG PO
[2023-11-10] MEDS ORDERED: KETOROLAC TROMETHAMINE 15 MG/ML SDV IV ONE (10:50)
[2023-11-10] MEDS ORDERED: ACETAMINOPHEN 500 MG TAB PO ONE (10:50)
[2023-11-10 11:19] LABS: BASO% 0.2 % (0-3); EOS% 0.7 % (0-8); IMMATURE GRANULOCYTES 0.2 % (0.0-5.0); LYMPH% 12.2 % (15-41); MEAN CELL VOLUME 89.8 fL CALC (80.0-100.0); MEAN CORPUSCULAR HGB 26.8 pG CALC (26.0-32.0); MEAN CORPUSCULAR HGB CONC 29.9 g/dL CAL (32.0-36.0); MONO% 6.8 % (2-13); NEUT# 3.66 thou/uL (1.82-7.42); NEUT% 79.9 % (42-76); RED BLOOD COUNT 4.1 mill/uL (4.70-6.10); RED CELL DISTRI WIDTH 17.7 % (11.5-15.5)
[2023-11-10 11:30] LABS: HEMATOCRIT 36.8 % (39.0-50.0)
[2023-11-10 11:37] LABS: ALBUMIN 3.8 g/dL (3.2-5.0); BILIRUBIN, TOTAL 0.9 mg/dL (0.2-1.3); CREATININE 0.9 mg/dL (0.7-1.3); POTASSIUM 3.7 mmol/l (3.5-5.1); TOTAL PROTEIN 7.1 g/dL (6.3-8.2)
[2023-11-10] MEDS ORDERED: AZITHROMYCIN 250 MG/TAB PO ONE (13:10)
[2023-11-10] MEDS ORDERED: FUROSEMIDE 40 MG/4 ML SDV IV ONE (13:10)
[2023-11-10] MEDS ORDERED: cefTRIAXone SODIUM 2 GM in SODIUM CHLORIDE 0.9% 100 ML IV ONE (13:10)
[2023-11-10] MEDS ORDERED: MAGNESIUM HYDROXIDE 30 ML UDC PO PRN (14:05)
[2023-11-10] MEDS ORDERED: ACETAMINOPHEN 325 MG/TAB PO PRN (14:05)
[2023-11-10] MEDS ORDERED: DEXTROSE 250 ML IV PRN (14:10)
[2023-11-10] MEDS ORDERED: DEXAMETHASONE 2 MG/TAB TAB PO SCH (14:30)
[2023-11-10] MEDS ORDERED: INSULIN LISPRO 100 UNITS/ML ML SC SCH (17:00)
[2023-11-10] MEDS ORDERED: IPRATROPIUM-Albuterol 0.5MG-2.5MG/3 ML IN PRN (20:30)
[2023-11-10] MEDS ORDERED: ENOXAPARIN SODIUM 40 MG/0.4 ML SYR SC SCH (21:00)
[2023-11-10] MEDS ORDERED: GABAPENTIN 300 MG/CAP PO SCH (21:00)
[2023-11-10] MEDS ORDERED: CLARIFY DOSE PO PRN (22:45)
[2023-11-10] MEDS ORDERED: METOPROLOL TARTRATE 5 MG/5 ML VIAL IV PRN (22:55)
[2023-11-11] VITALS (7 sets, daily range): BP systolic 109–118; BP diastolic 63–82
[2023-11-11 01:24] LABS: URINE BLOOD DIPSTICK Negative (NEGATIVE); URINE GLUCOSE - DIPSTICK 250 mg/dL (NEGATIVE); URINE KETONE 15 mg/dL (NEGATIVE); URINE LEUK ESTERASE Negative (NEGATIVE); URINE NITRITE - DIPSTICK Negative (Negative); URINE PH 6.5 (4.5-8.0); URINE PROTEIN - DIPSTICK 30 mg/dL (NEG-TRACE); URINE SPECIFIC GRAVITY 1.015
[2023-11-11 01:32] LABS: URINE COLOR Yellow
[2023-11-11 01:34] LABS: URINE BACTERIA FEW hpf; URINE EPITHELIAL CELLS FEW EPI/hpf (0-FEW); URINE RBC 0-2 RBC/hpf (0-5)
[2023-11-11 05:08] LABS: HEMATOCRIT 38.3 % (39.0-50.0); HEMOGLOBIN 11.7 g/dl (14.0-18.0); IMMATURE GRANULOCYTES 0.5 % (0.0-5.0); LYMPH% 14.4 % (15-41); MEAN CELL VOLUME 86.7 fL CALC (80.0-100.0); MEAN CORPUSCULAR HGB 26.5 pG CALC (26.0-32.0); MEAN CORPUSCULAR HGB CONC 30.5 g/dL CAL (32.0-36.0); MONO% 5.1 % (2-13); NEUT# 1.72 thou/uL (1.82-7.42); RED BLOOD COUNT 4.42 mill/uL (4.70-6.10); RED CELL DISTRI WIDTH 17.5 % (11.5-15.5)
[2023-11-11 05:30] LABS: ALBUMIN 3.4 g/dL (3.2-5.0); BILIRUBIN, TOTAL 0.8 mg/dL (0.2-1.3); C-REACTIVE PROTEIN 6.3 mg/dL (0-0.9); CREATININE 0.8 mg/dL (0.7-1.3); POTASSIUM 4.1 mmol/l (3.5-5.1); TOTAL PROTEIN 6.4 g/dL (6.3-8.2)
[2023-11-11] MEDS ORDERED: ALBUTEROL SULFATE 8 GM INH IN PRN (06:15)
[2023-11-11] MEDS ORDERED: FUROSEMIDE 40 MG/4 ML SDV IV SCH (09:00)
[2023-11-11] MEDS ORDERED: CLOPIDOGREL BISULFATE 75 MG/TAB TAB PO SCH (09:00)
[2023-11-11] MEDS ORDERED: ATORVASTATIN CALCIUM 40 MG/TAB PO SCH (09:00)
[2023-11-11] MEDS ORDERED: DULOXETINE HCl 30 MG/CAP PO SCH (09:00)
[2023-11-11] MEDS ORDERED: TIOTROPIUM BROMIDE MONOHYDRATE 2.5 MCG/ACT 4 GM INH IN SCH (09:00)
[2023-11-11] MEDS ORDERED: ASPIRIN 81 MG/TAB PO SCH (09:00)
[2023-11-11] MEDS ORDERED: amLODIPine BESYLATE 5 MG/TAB PO SCH (09:00)
[2023-11-11] MEDS ORDERED: TAMSULOSIN HCL 0.4 MG CAP PO SCH (09:00)
[2023-11-11] MEDS ORDERED: FINASTERIDE 5 MG/TAB PO SCH (12:30)
[2023-11-11] MEDS ORDERED: AZITHROMYCIN 500 MG in SODIUM CHLORIDE 0.9% 250 ML IV SCH (13:30)
[2023-11-11] MEDS ORDERED: METOPROLOL TARTRATE 25 MG/TAB PO SCH (21:00)
[2023-11-12] VITALS (7 sets, daily range): BP systolic 92–122; BP diastolic 63–79
[2023-11-12 05:17] LABS: HEMATOCRIT 39.2 % (39.0-50.0); HEMOGLOBIN 11.8 g/dl (14.0-18.0); IMMATURE GRANULOCYTES 0.3 % (0.0-5.0); LYMPH% 10.1 % (15-41); MEAN CELL VOLUME 87.7 fL CALC (80.0-100.0); MEAN CORPUSCULAR HGB 26.4 pG CALC (26.0-32.0); MEAN CORPUSCULAR HGB CONC 30.1 g/dL CAL (32.0-36.0); MONO% 5.6 % (2-13); NEUT# 6.55 thou/uL (1.82-7.42); RED BLOOD COUNT 4.47 mill/uL (4.70-6.10); RED CELL DISTRI WIDTH 17.5 % (11.5-15.5)
[2023-11-12 05:45] LABS: ALBUMIN 3.6 g/dL (3.2-5.0); BILIRUBIN, TOTAL 0.6 mg/dL (0.2-1.3); CREATININE 1.1 mg/dL (0.7-1.3); MAGNESIUM 2.1 mg/dL (1.6-2.3); POTASSIUM 4.3 mmol/l (3.5-5.1); TOTAL PROTEIN 6.6 g/dL (6.3-8.2)
[2023-11-12] MEDS ORDERED: amLODIPine BESYLATE 2.5 MG/TAB PO SCH (09:00)
[2023-11-12] MEDS ORDERED: TAMSULOSIN HCL 0.4 MG CAP PO SCH (09:00)
[2023-11-12] MEDS ORDERED: METOPROLOL SUCCINATE 25 MG/TAB-TOPROL XL PO SCH (09:00)
[2023-11-12] MEDS ORDERED: FUROSEMIDE 40 MG/4 ML SDV IV SCH (09:00)
[2023-11-13 00:11] VITALS: BP 135/83
[2023-11-13 03:52] VITALS: BP 125/84
[2023-11-13 05:02] VITALS: BP 125/84
[2023-11-13 05:37] LABS: BASO% 0.2 % (0-3); HEMATOCRIT 37.3 % (39.0-50.0); HEMOGLOBIN 11.2 g/dl (14.0-18.0); IMMATURE GRANULOCYTES 0.3 % (0.0-5.0); LYMPH% 10.6 % (15-41); MEAN CELL VOLUME 89.7 fL CALC (80.0-100.0); MEAN CORPUSCULAR HGB 26.9 pG CALC (26.0-32.0); MONO% 4.7 % (2-13); NEUT# 5.06 thou/uL (1.82-7.42); NEUT% 84.2 % (42-76); RED BLOOD COUNT 4.16 mill/uL (4.70-6.10); RED CELL DISTRI WIDTH 17.5 % (11.5-15.5)
[2023-11-13 05:58] LABS: ALBUMIN 3.4 g/dL (3.2-5.0); BILIRUBIN, TOTAL 0.4 mg/dL (0.2-1.3); CREATININE 0.8 mg/dL (0.7-1.3); MAGNESIUM 2.2 mg/dL (1.6-2.3); TOTAL PROTEIN 6.5 g/dL (6.3-8.2)
[2023-11-13] MEDS ORDERED: OMNICEF300 MG PO (06:18)
[2023-11-13] MEDS ORDERED: ZITHROMAX250 MG PO (06:19)
[2023-11-13 07:22] VITALS: BP 122/74
[2023-11-13] MEDS ORDERED: FUROSEMIDE 20 MG/TAB PO SCH (09:00)
[2023-11-13 11:14] VITALS: BP 117/69
== END 2023-11-13 11:42 | DRG 177 ==
LOC: ED 10:35 → ED-I 10:59 → ED 13:24 → MS2 13:25
PROVIDERS: Family Medicine; Student in an Organized Health Care Education/Training Program; ADMIT Internal Medicine; ATTEND Internal Medicine
PROC: 0T9B70Z Drainage of Bladder with Drainage Device, Via Natural or Artificial Opening (ICD-10-PCS; principal; 2023-11-11)
DX: U07.1 COVID-19 (principal); J12.82 Pneumonia due to coronavirus disease 2019; L89.323 Pressure ulcer of left buttock, stage 3; L89.313 Pressure ulcer of right buttock, stage 3; I13.0 Hypertensive heart and chronic kidney disease with heart failure and stage 1 through stage 4 chronic kidney disease, or unspecified chronic kidney disease; J44.0 Chronic obstructive pulmonary disease with (acute) lower respiratory infection; J96.11 Chronic respiratory failure with hypoxia; L97.829 Non-pressure chronic ulcer of other part of left lower leg with unspecified severity; E11.22 Type 2 diabetes mellitus with diabetic chronic kidney disease; N18.9 Chronic kidney disease, unspecified; I50.9 Heart failure, unspecified; E11.51 Type 2 diabetes mellitus with diabetic peripheral angiopathy without gangrene; I25.10 Atherosclerotic heart disease of native coronary artery without angina pectoris; N40.1 Benign prostatic hyperplasia with lower urinary tract symptoms; R33.8 Other retention of urine; I87.8 Other specified disorders of veins; E78.5 Hyperlipidemia, unspecified; M54.9 Dorsalgia, unspecified; G89.29 Other chronic pain; F32.A Depression, unspecified; F41.9 Anxiety disorder, unspecified; F17.200 Nicotine dependence, unspecified, uncomplicated; Z79.84 Long term (current) use of oral hypoglycemic drugs; Z99.81 Dependence on supplemental oxygen; Z95.5 Presence of coronary angioplasty implant and graft; Z95.810 Presence of automatic (implantable) cardiac defibrillator; Z96.89 Presence of other specified functional implants
CPT/HCPCS: J1650

== ENCOUNTER 2023-12-11 10:59 | Observation (INO) | payer MEDICARE, BC ==
[~2023-12-11] VITALS: Ht 190.5 cm; Wt 84.8 kg
[2023-12-11] VITALS (16 sets, daily range): BP systolic 85–138; BP diastolic 55–119
[~2023-12-11 10:59] MED LIST changes: +OMNICEF300 MG PO
[2023-12-11] MEDS ORDERED: ACETAMINOPHEN 500 MG TAB PO ONE (11:10)
[2023-12-11] MEDS ORDERED: KETOROLAC TROMETHAMINE 30 MG/ML SDV IV ONE (11:10)
[2023-12-11 11:57] LABS: BASO% 0.4 % (0-3); EOS% 1.1 % (0-8); HEMATOCRIT 40.8 % (39.0-50.0); HEMOGLOBIN 12.1 g/dl (14.0-18.0); IMMATURE GRANULOCYTES 0.1 % (0.0-5.0); LYMPH% 14.8 % (15-41); MEAN CELL VOLUME 89.1 fL CALC (80.0-100.0); MEAN CORPUSCULAR HGB 26.4 pG CALC (26.0-32.0); MEAN CORPUSCULAR HGB CONC 29.7 g/dL CAL (32.0-36.0); MONO% 5.4 % (2-13); NEUT# 5.83 thou/uL (1.82-7.42); NEUT% 78.2 % (42-76); RED BLOOD COUNT 4.58 mill/uL (4.70-6.10); RED CELL DISTRI WIDTH 18.8 % (11.5-15.5)
[2023-12-11 12:54] LABS: ALBUMIN 3.8 g/dL (3.2-5.0); BILIRUBIN, TOTAL 0.4 mg/dL (0.2-1.3); CREATININE 0.9 mg/dL (0.7-1.3); POTASSIUM 4.4 mmol/l (3.5-5.1); TOTAL PROTEIN 7.1 g/dL (6.3-8.2)
[2023-12-11] MEDS ORDERED: ACETAMINOPHEN 325 MG/TAB PO PRN (16:00)
[2023-12-11] MEDS ORDERED: MAGNESIUM HYDROXIDE 30 ML UDC PO PRN (16:00)
[2023-12-11] MEDS ORDERED: ENOXAPARIN SODIUM 40 MG/0.4 ML SYR SC SCH (21:00)
[2023-12-11] MEDS ORDERED: GABAPENTIN 300 MG/CAP PO SCH (21:00)
[2023-12-11] MEDS ORDERED: ATORVASTATIN CALCIUM 40 MG/TAB PO SCH (21:00)
[2023-12-12 00:08] VITALS: BP 112/57
[2023-12-12 03:55] VITALS: BP 112/57
[2023-12-12 05:10] LABS: BASO% 0.4 % (0-3); EOS% 6.6 % (0-8); HEMOGLOBIN 10.8 g/dl (14.0-18.0); IMMATURE GRANULOCYTES 0.2 % (0.0-5.0); LYMPH% 28.7 % (15-41); MEAN CELL VOLUME 90.5 fL CALC (80.0-100.0); MEAN CORPUSCULAR HGB 27.1 pG CALC (26.0-32.0); MONO% 11.3 % (2-13); NEUT# 2.82 thou/uL (1.82-7.42); NEUT% 52.8 % (42-76); RED BLOOD COUNT 3.98 mill/uL (4.70-6.10); RED CELL DISTRI WIDTH 18.9 % (11.5-15.5)
[2023-12-12 05:25] LABS: ALBUMIN 3.3 g/dL (3.2-5.0); BILIRUBIN, TOTAL 0.4 mg/dL (0.2-1.3); CREATININE 0.9 mg/dL (0.7-1.3); MAGNESIUM 2.1 mg/dL (1.6-2.3); POTASSIUM 4.6 mmol/l (3.5-5.1); TOTAL PROTEIN 6.1 g/dL (6.3-8.2)
[2023-12-12 07:08] LABS: URINE BLOOD DIPSTICK Negative (NEGATIVE); URINE COLOR Yellow; URINE GLUCOSE - DIPSTICK 500 mg/dL (NEGATIVE); URINE KETONE Negative (NEGATIVE); URINE LEUK ESTERASE Negative (NEGATIVE); URINE NITRITE - DIPSTICK Negative (Negative); URINE PH 5.5 (4.5-8.0); URINE PROTEIN - DIPSTICK Negative (NEG-TRACE); URINE SPECIFIC GRAVITY 1.015; URINE UROBILINOGEN - DIPSTICK 0.2 E.U./dL (0.2)
[2023-12-12] MEDS ORDERED: metFORMIN HYDROCHLORIDE 500 MG/TAB PO SCH (07:30)
[2023-12-12 07:59] VITALS: BP 119/67
[2023-12-12] MEDS ORDERED: TAMSULOSIN HCL 0.4 MG CAP PO SCH (08:00)
[2023-12-12] MEDS ORDERED: DULOXETINE HCl 30 MG/CAP PO SCH (09:00)
[2023-12-12] MEDS ORDERED: CLOPIDOGREL BISULFATE 75 MG/TAB TAB PO SCH (09:00)
[2023-12-12] MEDS ORDERED: FUROSEMIDE 20 MG/TAB PO SCH (09:00)
[2023-12-12] MEDS ORDERED: FINASTERIDE 5 MG/TAB PO SCH (09:00)
[2023-12-12 12:00] VITALS: BP 113/60
== END 2023-12-12 15:02 ==
LOC: ED 10:59 → ED-I 15:00 → ED 15:24 → MS2 15:25
PROVIDERS: Family Medicine; ADMIT Student in an Organized Health Care Education/Training Program; ATTEND Student in an Organized Health Care Education/Training Program
DX: R53.1 Weakness (principal); R62.7 Adult failure to thrive; E11.22 Type 2 diabetes mellitus with diabetic chronic kidney disease; N18.9 Chronic kidney disease, unspecified; I50.9 Heart failure, unspecified; J44.9 Chronic obstructive pulmonary disease, unspecified; E78.5 Hyperlipidemia, unspecified; I25.10 Atherosclerotic heart disease of native coronary artery without angina pectoris; E11.65 Type 2 diabetes mellitus with hyperglycemia; F41.9 Anxiety disorder, unspecified; F32.A Depression, unspecified; M25.511 Pain in right shoulder; M54.50 Low back pain, unspecified; G89.29 Other chronic pain; F17.200 Nicotine dependence, unspecified, uncomplicated; Z99.81 Dependence on supplemental oxygen; Z95.810 Presence of automatic (implantable) cardiac defibrillator; Z96.89 Presence of other specified functional implants; Z95.5 Presence of coronary angioplasty implant and graft; Z95.820 Peripheral vascular angioplasty status with implants and grafts; Z79.84 Long term (current) use of oral hypoglycemic drugs; Z91.81 History of falling
CPT/HCPCS: G0378; J1650